=== PATIENT | female | born 1965 | race Caucasian/White ===

== ENCOUNTER 2021-11-16 14:42 | Observation (INO) | payer MEDICARE, SELFPAY ==
[2021-11-16] VITALS (13 sets, daily range): BP systolic 90–137; BP diastolic 71–102; PULSE 69–78; RESP 15–20; TEMP 37.1–37.4; O2SAT 95–100
--- NOTE | ~2021-11-16 | CT_ITS ---
EXAMINATION: CT brain wo con DATE: 11/17/2021 00:57 INDICATION: Decreased level of responsiveness TECHNIQUE: Computed tomography (CT) of the head was performed without intravenous contrast. Sagittal and coronal reconstructions were performed. The mA was adjusted according to patient size. Iterative reconstruction technique was employed. The dose-length product was 605.33 mGy-cm. COMPARISON: None FINDINGS: No acute intracranial hemorrhage, acute infarction or abnormal extra axial fluid collection. Ventricl es are normal and symmetric. No mass/mass effect. The orbits, paranasal sinuses and mastoid air cells are normal. IMPRESSION: 1. No acute intracranial process. Reviewed, dictated and finalized at location A. NISTRATIVE DIETITIAN
--- NOTE | ~2021-11-16 | XR_ITS ---
EXAMINATION: XR chest 1V portable DATE: 11/16/2021 20:57 INDICATION: Altered mental status. TECHNIQUE: A single frontal view of the chest was obtained. COMPARISON: None. FINDINGS: The lung volumes are small. There is mild atelectasis at left lung base. No pleural effusio n or pneumothorax. The heart size is normal. IMPRESSION: 1. Small lung volumes with mild atelectasis at left lung base. Reviewed, dictated and finalized at location E. ER PNEUMATIC
--- NOTE | 2021-11-16 14:55 | ECG_ITS ---
Measurements Intervals [place] Rate: 68 P: 26 [place]: 190 QRS: -3 QRSD: 93 T: 1 QT: 385 QTc: 409 Interpretive Statements SINUS RHYTHM VOLTAGE CRITERIA FOR LVH BORDERLINE T WAVE ABNORMALITY- INFERIOR LEADS BASELINE ARTIFACT- V4 BORDERLINE ECG Electronically Signed On 11-17-2021 7:39:23 [employer] MIXER OPERATOR by Cesar Villanueva D.O.
[2021-11-16 15:20] LABS: Basophils Absolute Auto 0.1 K/mm3 (0.0-0.1); Basophils Percent Auto 0.7 % (0.2-1.2); Eosinophils Absolute Auto 0.1 K/mm3 (0-0.3); Eosinophils Percent Auto 1.2 % (0-4.4); Hematocrit 38.5 % (37.0-47.0); Hemoglobin 12.6 g/dL (12.0-15.0); Immature Granulocyte Absolute 0.03 K/mm3 (0.00-0.031); Immature Granulocyte Percent A 0.4 % (0-0.5); Lymphocytes Absolute Auto 1.67 K/mm3 (0.9-3.2); Lymphocytes Percent Auto 19.6 % (18.3-44.2); Mean Corpuscular HGB Conc 32.7 g/dl (32-36); Mean Corpuscular Hemoglobin 28.3 pg (26-34); Mean Corpuscular Volume 86.3 fl (80-100); Mean Platelet Volume 9.1 fl (7.4-10.4); Monocytes Absolute Auto 0.4 K/mm3 (0.1-0.6); Monocytes Percent Auto 5.2 % (2.6-8.5); Neutrophils Absolute Auto 6.2 K/mm3 (1.3-6.7); Neutrophils Percent Auto 72.9 % (45.5-73.1); Platelet Count Result 311 k/mm3 (150-375); Red Blood Count 4.46 M/mm3 (4.2-5.4); White Blood Count 8.5 K/mm3 (4.5-10.0)
[2021-11-16 15:21] LABS: Add Urine Microscopic? NO; Appearance Urine Clear (Clear); Bilirubin Urine Negative (Negative); Blood Urine Negative (Negative); Color Urine Straw (Yellow); Glucose Urine UA Negative (Negative); Ketones Urine Negative (Negative); Leukocyte Esterase Ur Negative LEU/UL (Negative); Nitrate Urine Negative (Negative); Protein Urine Negative (Negative); Urobilinogen Urine Negative mg/dL (<2.0)
[2021-11-16 15:27] LABS: Alveolar/Arterial O2 Gradient 70.1 mmHg; Base Excess ABG 0.8 mEq/l (+/-2.0); Fractional Inspired Oxygen 36 %; HCO3 ABG 26.3 mEq/l (22.0-26.0); Modified Allen's Test Pass; Oxygen Content ABG 18.4 %vol (16.0-22.0); Oxygen Saturation ABG 98.6 % (95.0-100.0); Oxyhemoglobin 97.8 % THb (90.0-100.0); PCO2 ABG 45.6 mmHg (35.0-45.0); PO2 ABG 133.7 mmHg (80.0-100.0); PO2 FiO2 Ratio Arterial Blood 3.71 %; Site Drawn RIGHT RADIAL; Total Hemoglobin 13.2 g/dL (12.0-18.0); pH ABG 7.379 (7.350-7.450)
--- NOTE | 2021-11-16 15:27 | PC.NURSE ---
This nurse spoke to [place] [facility] and notified MD Liang that a CPK for pt should be ordered as well as seizure precautions. Case number is [id number].
[2021-11-16 15:28] LABS: Device NASAL CANNULA
[2021-11-16 15:33] LABS: Specific Grav Ur 1.003 (1.001-1.035)
[2021-11-16] MEDS: LACTATED RINGERS 1,000 ML 999 ML IV CONT (16:04)
[2021-11-16 16:15] LABS: Alanine Aminotransferase 29 U/L (4-35); Albumin Level 3.9 g/dL (3.5-5.1); Alkaline Phosphatase 100 U/L (38-126); Anion Gap 4 mmol/L (8-16); Aspartate Amino Transferase 28 U/L (14-36); Bilirubin,Total 0.4 mg/dL (0.2-1.3); Blood Urea Nitrogen 13 mg/dL (7-17); Carbon Dioxide 24 mmol/L (22-30); Chloride 106 mmol/L (98-107); Estimated CRCL calculation 86 ml/min; Estimated Glomerular Filt Rate > 60; Glucose 140 mg/dL (65-110); Potassium 3.8 mmol/L (3.4-5.0); Sodium 134 mmol/L (137-145)
[2021-11-16 17:06] LABS: Creatine Kinase 149 U/L (30-135)
[2021-11-16 17:27] LABS: Acetaminophen < 10 ug/mL (10-30); Ethanol < 10 mg/dL (<10); Salicylate < 1.0 mg/dL (2-20)
--- NOTE | 2021-11-16 17:30 | PM.IMHP ---
H&P: HPI History of Present Illness Date/Time: 11/16/21 17:30 Chief Complaint: Presumed overdose. Narrative: This is a 55-year-old who presented to the emergency department via EMS for evaluation of a presumed overdose. She is currently only arousable to noxious stimuli and cannot provide any history and as such all of the following is obtained via a review of her electronic medical records as well as discussions with nursing staff. I have not been able to get in touch with any family members though I was told that her daughter is on her way here from [place]. A review of her external medication history suggest that she has a history of insomnia, dyslipidemia, and hypothyroidism. Is my understanding that family members last spoke with the patient at around 10:30 and when they tried to get a hold of her 4 hours thereafter and she did not answer. They must have been concerned about her well-being as they called for a welfare check. The patient was reportedly not at home and her cellphone was pinged to a local truck stop. Police did find her at that truck stop sitting in her car, taking pills 1 at a time. She admitted to them that she was taking the medication in a suicide attempt. EMS was summoned and on their arrival she was alert and oriented x4 though she became lethargic in route and minimally responsive. It is unclear which medications the patient had been taking though according to counts performed by staff in the emergency department, it looks as though she may have taken tizanidine and zolpidem though that has not been confirmed. Urine drug screen was negative and salicylate and acetaminophen levels were undetectable. Ethyl alcohol level was also undetectable. Currently she is sleeping heavily though response to noxious stimuli. She is protecting her airway and ABG was really unremarkable. Review of Systems Review of Systems: Unable to obtain given current clinical condition as detailed above. [facility] Past Medical History Medical History (Updated 11/16/21 @ 20:42 by Kaycee Simmons PA-C) Hypothyroidism Insomnia Surgical History Surgical History (Updated 11/16/21 @ 20:37 by Kaycee Simmons PA-C) Surgical history unknown Family History Family History (Updated 11/16/21 @ 20:37 by Kaycee Simmons PA-C) Other Family history unknown Social History Social History (Updated 11/16/21 @ 20:38 by Kaycee Simmons PA-C) Social History: Unable to obtain at this time given clinical condition as above. Meds Home Medications and Allergies Home Medications Medication Instructions Recorded Confirmed Type amitriptyline 100 mg PO HS 11/16/21 11/16/21 History celecoxib 200 mg PO DAILY 11/16/21 11/16/21 History ezetimibe 10 mg PO DAILY 11/16/21 11/16/21 History gabapentin 300 mg PO BID 11/16/21 11/16/21 History levothyroxine 125 mcg PO DAILY 11/16/21 11/16/21 History tizanidine 4 mg PO DAILY 11/16/21 11/16/21 History valacyclovir 1,000 mg PO TID 11/16/21 11/16/21 History zolpidem 5 mg PO HS PRN 11/16/21 11/16/21 History Allergies Allergy/AdvReac Type Severity Reaction Status Date / Time morphine Allergy Unknown Verified 11/16/21 18:55 Vital Signs Vital Signs - 24 hr 11/16/21 14:45 Temperature 99.3 F Pulse Rate 74 Respiratory Rate 17 Blood Pressure 137/102 H Pulse Oximetry 99 Exam Narrative: General: Ill-appearing female in the semi-Van position in bed. Heavily asleep. Weight: 95 kg. BMI: 30.1. HEENT: Normocephalic, atraumatic. Pupils are approximately 3 to 4 mm and are sluggishly reactive. Sclerae anicteric. Conjunctiva mildly injected. Tacky mucous membranes. Oropharynx not visualized. Neck: Supple. No obvious JVD, thyromegaly, lymphadenopathy, or bruits. Respiratory: Asleep and snoring. Respirations are nonlabored. She is being monitored closely on capnography. Her pulse ox is currently 100% on room air. Diminished lung sounds due to poor effort, otherwise clear to auscultation. [facility]
[2021-11-16 17:32] LABS: Amphetamine Screen Urine Negative (Negative); Barbiturate Screen Urine Negative (Negative); Benzodiazepines Screen Urine Negative (Negative); Cannabinoid Screen Urine Negative (Negative); Cocaine Screen Urine Negative (Negative); Methadone Screen Urine Negative (Negative); Opiate Screen Urine Negative (Negative); Phencyclidine Screen Urine Negative (Negative)
[2021-11-16] MEDS: LACTATED RINGERS 1,000 ML 125 ML IV CONT (17:40)
--- NOTE | 2021-11-16 17:40 | ED.OVERDOSE ---
HPI - Overdose General Chief Complaint: Overdose Stated Complaint: OVERDOSE,SI Time Seen by Provider: 11/16/21 15:01 Source: EMS Mode of arrival: EMS Limitations: altered mental status History of Present Illness HPI Narrative: 55 f BIB EMS for SA/SI/Overdose Patient apparently was in touch with her family at around 1030 this morning Unclear what the context or content of that interaction was However at some point later in the morning they got worried about her and started possibly trying to track her by pinging her iPhone This led to EMS being summoned to the local [employer] truck stop around 2 PM where the patient had reportedly been sitting and eating pills one by one and also was reportedly awake and sitting in a police car when they got there By the time she arrived here she is deeply sedated and lethargic and only responds correctly to pain such as a sternal rub In counting through all of her pills it appears likely that she took 7 or 8 4 mg tizanidine which are missing from a prescription bottle filled yesterday She also has a bottle of Ambien 5 mg filled approximately a month ago and would have taken about 30 or 35 of those if she had previously been taking them correctly The other pills seem to be present still in the bottles in their correct amounts Review of Systems Review of Systems: ROS unobtainable: Yes unobtainable due to mental status Exam Const: General: cooperative and healthy appearing Other: Lethargic/obtunded HENMT: Head: normal to inspection, normocephalic, atraumatic, no contusions and no hematomas Ears: external ears normal General nose exam: no epistaxis Eyes: Conjunctivae: conjunctivae normal Pupils: Equal, round and reactive pupils present (4 mm) EOM: EOMs intact bilaterally Neck: Neck: normal visual inspection, no meningeal signs, supple and no JVD Resp: Effort & Inspection: normal respiratory effort and not labored Auscultation: clear to auscultation bilaterally and other (BS =) Other: She is protecting her airway with the head at a 45 degree angle Cardio: Rate: regular rate Rhythm: regular rhythm Heart sounds: no murmurs GI: GI Palp: Yes Soft to palpation and No Tenderness to palpation present (GI) Skin: General skin exam: normal color and no rashes or lesions noted Neuro: General: moves all extremities Other: Appropriate to noxious stimuli but does not follow any directions and does not interact verbally Extrem: General: normal to inspection and no pedal edema Psych: Affect: normal affect Course Course Emergency Course: Remains hemodynamically stable and with good O2 saturations on minimal supplemental oxygen No significant conduction abnormalities on the EKG Discussed with Dr. Cotton in the ICU and he is okay with monitoring without intubating her Discussed with hospitalist for admission Vital Signs Vital signs: Vital Signs Temperature 37.4 C 11/16/21 14:45 Pulse Rate 74 11/16/21 14:45 Respiratory Rate 17 11/16/21 14:45 Blood Pressure 137/102 H 11/16/21 14:45 Pulse Oximetry 99 11/16/21 14:45 Temperature 37.4 C 11/16/21 14:45 Pulse Rate 73 11/16/21 16:05 Respiratory Rate 20 11/16/21 16:05 Blood Pressure 90/73 L 11/16/21 16:05 Pulse Oximetry 100 11/16/21 16:05 MDM - Overdose Differential Diagnosis Differential diagnosis: Likely suicide attempt by multiple drug overdose Medical Records Attestation: I reviewed the patient's medical records. Lab Data Attestation: I reviewed the patient's lab results. Result diagrams: 11/16/21 15:09 11/16/21 15:09 Labs: Lab Results 11/16/21 11/16/21 11/16/21 Range/Units 15:07 15:09 15:09 WBC 8.5 (4.5-10.0) K/mm3 RBC 4.46 (4.2-5.4) M/mm3 Hgb 12.6 (12.0-15.0) g/dL Hct 38.5 (37.0-47.0) % MCV 86.3 (80-100) fl MCH 28.3 (26-34) pg MCHC 32.7 (32-36) g/dl RDW 14.0 (11.5-14.5) % Plt Count 311 (150-375) k/mm3 MPV 9.1 (7
--- NOTE | 2021-11-16 18:40 | PC.NURSE ---
This nurse gave an update to pt daughter. Pt daughter instructed this nurse to call with an update once she is awake or when a bed is available.
--- NOTE | 2021-11-16 20:40 | PC.NURSE ---
This patient, Sofia Castaneda, was admitted to Intensive Care Unit-5. Patient/family oriented to hospital policies and general routines including ID bracelet, bed and alarms, visiting hours, pain management, procedures, bathroom and other care routines, personal items, smoking policy, room service/diet, and visiting hours. Information on how to activate the Rapid Response Team has been discussed. Patient/Family are encouraged to report perceived risks to care and to ask questions if they do not understand what they are told or what they should do.
[2021-11-16 23:07] LABS: SARS-CoV-2 RNA PCR Negative
[2021-11-16 23:22] LABS: Creatine Kinase 156 U/L (30-135)
[2021-11-16 23:43] LABS: Free T4 Free Thyroxine 0.87 ng/mL (0.78-2.19)
[2021-11-17] VITALS (9 sets, daily range): BP systolic 104–147; BP diastolic 66–95; PULSE 61–98; RESP 14–27; TEMP 36.1–36.9; O2SAT 95–99
[2021-11-17 00:37] LABS: Creatine Kinase 114 U/L (30-135)
[2021-11-17] MEDS: LACTATED RINGERS 1,000 ML 125 ML IV CONT (01:05)
--- NOTE | 2021-11-17 02:43 | PC.NURSE ---
Addendum entered by Shawn Pimentel RN 11/17/21 06:37: Patients Rocío smith: [phone] Original Note: 23:00 Attempted to return phone call to Rocío smith. Call went straight to voicemail. This RN left a message for her to call anytime.
[2021-11-17 04:40] LABS: Hemoglobin 13.2 g/dL (12.0-15.0); Mean Corpuscular HGB Conc 30.7 g/dl (32-36); Mean Corpuscular Hemoglobin 28.6 pg (26-34); Mean Corpuscular Volume 93.3 fl (80-100); Mean Platelet Volume 9.1 fl (7.4-10.4); Platelet Count Result 228 k/mm3 (150-375); Red Blood Count 4.61 M/mm3 (4.2-5.4); Red Cell Distribution Width 14.1 % (11.5-14.5); White Blood Count 8.2 K/mm3 (4.5-10.0)
[2021-11-17 05:01] LABS: Alanine Aminotransferase 26 U/L (4-35); Albumin Level 3.5 g/dL (3.5-5.1); Alkaline Phosphatase 88 U/L (38-126); Anion Gap 4 mmol/L (8-16); Aspartate Amino Transferase 28 U/L (14-36); Bilirubin,Total 0.7 mg/dL (0.2-1.3); Blood Urea Nitrogen 12 mg/dL (7-17); Calcium 8.6 mg/dL (8.4-10.2); Carbon Dioxide 25 mmol/L (22-30); Chloride 109 mmol/L (98-107); Estimated CRCL calculation 112 ml/min; Estimated Glomerular Filt Rate > 60; Glucose 93 mg/dL (65-110); Potassium 3.7 mmol/L (3.4-5.0); Sodium 138 mmol/L (137-145)
[2021-11-17] MEDS: LEVOTHYROXINE SODIUM INJ 100 MCG/5 ML VIAL 62.5 MCG IV PUSH (05:56)
[2021-11-17] MEDS: LACTATED RINGERS 1,000 ML 999 ML IV CONT (08:35)
--- NOTE | 2021-11-17 10:29 | PC.NURSE ---
1027- Spoke with Keven from poison control stated he is closing out Sofia's case there is nothing further to do.
--- NOTE | 2021-11-17 11:29 | WPDCNINT ---
Assessment and Plan Assessment and plan (1) Intentional overdose: Code(s): T50.902A - Poisoning by unspecified drugs, medicaments and biological substances, intentional self-harm, initial encounter Status: Acute Assessment and Plan: Patient started to have on tizanidine and zolpidem -was initially somnolent, CT brain was negativ for any acute intracranial abnormality -currently patient is awake, alert, oriented x3, nonfocal -patient is asking to eat breakfast -will give additional IV fluid bolus (2) Suicidal behavior: Code(s): R45.89 - Other symptoms and signs involving emotional state Status: Acute Assessment and Plan: initially in the ER, pt admitted to suicide attenpt. This morning she denies suicidal or homicidal. Pt is medically stable for care coordination and crisis management evaluation (3) Hypothyroidism: Code(s): E03.9 - Hypothyroidism, unspecified Status: Chronic Assessment and Plan: continue levothyroxine Additional Plan Code status:Full code Critical care time spent: 42 minutes This dictation may have been done utilizing a voice recognition system. Attempts have been made to correct errors. However, there may be uncorrected grammatical, spelling, and recognition errors present. Due to a high probability of clinically significant, life threatening deterioration, the patient required my highest level of preparedness to intervene emergently and I personally spent this critical care time directly and personally managing the patient. This critical care time included obtaining a history; examining the patient; pulse oximetry; ordering and review of studies; arranging urgent treatment with development of a management plan; evaluation of patient's response to treatment; frequent reassessment; and discussions with other providers. It was exclusive of separately billable procedures and treating other patients and teaching time. Please see Assessment and Plan section and the rest of the note for further information on patient assessment and treatment Assembler For Pull[employer] Over Machine Consult Note Consult date: 11/17/21 Time Seen: 07:04 Reason for consult: Intentional overdose, suicidal behavior, altered mental status HPI: Sofia Castaneda is a 55 year old female with past medical history of insomnia and hypothyroidism presented the ED on 11/16/2021 with intentional overdose and suicidal behavior. Patient apparently may have taken tizanidine and zolpidem but is unsure. Patient initially was lethargic in the ER and in the ICU. Patient received 1 L IV fluid bolus in the ER and was started on maintenance IV fluids. On 11/17/2021 patient seen and examined the ICU, is awake, alert, oriented, nonfocal. Denies any homicidal or suicidal behavior. She states it was a mistake and she has a lot of stressors going on. Patient is hungry, follows commands in all extremities eyes able to hold a conversation. Patient is hemodynamically stable, urine output has been adequate, she is afebrile. Denies any chest pain, shortness of breath, abdominal pain, nausea, vomiting, diarrhea. Patient states she is hungry Review of Systems Review of Systems: All systems reviewed & are unremarkable except as noted in HPI and below PMFSH Past Medical History Medical History (Updated 11/17/21 @ 11:35 by Tamra Garcia MD) Hypothyroidism Insomnia Surgical History Surgical History (Updated 11/16/21 @ 20:37 by Kaycee Simmons PA-C) Surgical history unknown Family History Family History (Updated 11/16/21 @ 20:37 by Kaycee Simmons PA-C) Other Family history unknown Social History Social History (Updated 11/16/21 @ 20:38 by Kaycee Simmons PA-C) Social History: Unable to obtain at this time given clinical condition as above. Smoking status: Never smoker Alcohol intake: never Substance use: never Substance use type: does not use Spiritual care concerns: No Meds
--- NOTE | 2021-11-17 17:52 | PM.DS ---
DS: Admitting Diagnosis Discharge Date 11/17/21 Admitting Diagnosis (1) Altered mental status: Code(s): R41.82 - Altered mental status, unspecified (2) Suicide gesture: Code(s): X83.8XXA - Intentional self-harm by other specified means, initial encounter (3) Suicide attempt by multiple drug overdose: Code(s): (4) Hypothyroidism: Code(s): E03.9 - Hypothyroidism, unspecified Status: Chronic DS: Discharge Diagnosis Discharge Diagnosis (1) Intentional overdose: Code(s): T50.902A - Poisoning by unspecified drugs, medicaments and biological substances, intentional self-harm, initial encounter Status: Acute (2) Suicidal behavior: Code(s): R45.89 - Other symptoms and signs involving emotional state Status: Acute (3) Hypothyroidism: Code(s): E03.9 - Hypothyroidism, unspecified Status: Chronic (4) Suicide attempt by multiple drug overdose: Code(s): T50.912A - Poisoning by multiple unspecified drugs, medicaments and biological substances, intentional self-harm, initial encounter Status: Acute (5) Suicide gesture: Code(s): X83.8XXA - Intentional self-harm by other specified means, initial encounter Status: Acute (6) Acute metabolic encephalopathy: Code(s): G93.41 - Metabolic encephalopathy Status: Acute DS: Summary Hospital Course Reason for hospitalization: suicide attempt by OD Hospital Course: 55 year old female with past medical history of insomnia and hypothyroidism presented the ED on 11/16/2021 with intentional overdose and suicidal behavior. Patient apparently may have taken tizanidine and zolpidem but is unsure. Patient initially was lethargic in the ER and in the ICU. Patient received 1 L IV fluid bolus in the ER and was started on maintenance IV fluids. On 11/17/2021 patient seen and examined the ICU, is awake, alert, oriented, nonfocal. Denies any homicidal or suicidal behavior. She states it was a mistake and she has a lot of stressors going on. Patient is hungry, follows commands in all extremities eyes able to hold a conversation. Patient is hemodynamically stable, urine output has been adequate, she is afebrile. Denies any chest pain, shortness of breath, abdominal pain, nausea, vomiting, diarrhea. Pt is cleared by Fireboat Operator for evaluation by Crisis. She is subsequently cleared by crisis for dc home in stable condition with suicide contract. Status at Discharge Overall status at discharge: patient is back to baseline Time Spent with Patient Time attestation: Total time spent providing and/or coordinating discharge services: Time spent: Greater than 30 minutes Exam Narrative: General: Patient lying in bed comfortably , in no acute distress HEENT: NCAT EOMI, sclera is clear Neck: Neck is supple, no cervical lymphadenopathy Respiratory: Clear to auscultation bilaterally Cardiac: Sinus rhythm, regular rate, S1-S2 normal Abdomen: Soft, nontender, nondistended, normoactive bowel sounds Extremities: No edema, palpable pedal pulses Neuro: Patient is awake, alert, oriented x3, nonfocal, able to answer questions appropriately Skin: Warm and dry, no skin lesions noted Psych: Mood and affect congruent, thoughts linear, elevated mood when told she will be discharged DS: Data Data Completed and Pending Labs on day of discharge: Labs from last 24 hours 11/17/21 11/17/21 11/17/21 04:34 04:34 00:08 WBC 8.2 RBC 4.61 Hgb 13.2 Hct 43.0 MCV 93.3 D MCH 28.6 MCHC 30.7 L RDW 14.1 Plt Count 228 MPV 9.1 Sodium 138 Potassium 3.7 Chloride 109 H Carbon Dioxide 25 Anion Gap 4 L BUN 12 Creatinine 0.60 L Estim Creat Clear Calc 112 Estimated GFR > 60 Glucose 93 Calcium 8.6 Total Bilirubin 0.7 AST 28 ALT 26 Alkaline Phosphatase 88 Total Creatine Kinase 114 Total Protein 6.0 L Albumin 3.5 Free T4 SARS-CoV-2
== END 2021-11-17 19:11 ==
LOC: ANHED 17:56 → ANHICU 21:56
PROVIDERS: Emergency Medicine; Physician Assistant; Admitting Provider Internal Medicine; Emergency Provider Emergency Medicine; Visit Provider Hospitalist
DX: T50.912A Poisoning by multiple unspecified drugs, medicaments and biological substances, intentional self-harm, initial encounter (principal); G93.41 Metabolic encephalopathy; G47.00 Insomnia, unspecified; E03.9 Hypothyroidism, unspecified; X83.8XXA Intentional self-harm by other specified means, initial encounter
CPT/HCPCS: 36415; 36600; 51701; 70450; 71045; 80053; 80307; 81003; 81025; 82550; 82805; 84439; 84443; 85025; 85027; 93005; 96361; 96374; 99285; C9803; G0378; J7120; U0003; U0005

== ENCOUNTER 2025-04-11 01:44 | Day surgery (SDC) | payer MEDICARE, SELFPAY ==
--- NOTE | 2025-04-06 14:24 | PM.IMHP ---
H&P: HPI History of Present Illness Date/Time: 04/06/25 14:24 Chief Complaint: mixed incontinence Narrative: desires intervention for both stress and urge incontinence Review of Systems Review of Systems: All systems reviewed & are unremarkable except as noted in HPI and below PMFSH Past Medical History Medical History Hypothyroidism Insomnia Surgical History Surgical History Surgical history unknown Family History Family History Other Family history unknown Social History Social History Social History: Unable to obtain at this time given clinical condition as above. Smoking status: Never smoker Alcohol intake: never Substance use: never Substance use type: does not use Spiritual care concerns: No Meds Home Medications and Allergies Home Medications ?Medication ?Instructions ?Recorded ?Confirmed ?Type amitriptyline 50 mg tablet 100 mg PO HS 11/16/21 11/16/21 History celecoxib 200 mg capsule 200 mg PO DAILY 11/16/21 11/16/21 History ezetimibe 10 mg tablet 10 mg PO DAILY 11/16/21 11/16/21 History gabapentin 300 mg capsule 300 mg PO BID 11/16/21 11/16/21 History tizanidine 4 mg tablet 4 mg PO DAILY 11/16/21 11/16/21 History valacyclovir 1 gram tablet 1,000 mg PO TID 11/16/21 11/16/21 History zolpidem 5 mg tablet 5 mg PO HS PRN Sleep 11/16/21 11/16/21 History levothyroxine 137 mcg capsule 137 mcg PO DAILY #60 caps 11/17/21 Rx Allergies Allergy/AdvReac Type Severity Reaction Status Date / Time morphine Allergy Unknown Verified 11/16/21 18:55 Exam Narrative: no acute distress alert and oriented x3 normal breathing Assessment and Plan Assessment and plan (1) Urge incontinence: Code(s): N39.41 - Urge incontinence Status: Acute (2) Intrinsic sphincter deficiency (ISD): Code(s): N36.42 - Intrinsic sphincter deficiency (ISD) Status: Acute Plan combination procedure of cystoscopy with Botox injection 100 units and cystoscopy with bulking agent.
[2025-04-09 10:26] VITALS: BMI 35.6
--- NOTE | 2025-04-09 10:34 | PC.NURSE ---
Report to the Outpatient Waiting Room, entrance under the green pavilion located off [facility], at time _0815_ on date _[id number]_. Planned Procedure Time: _1015_.? Time changes happen often and if your time is changed the preop area will call you the afternoon before. - You and your visitor will be asked to self-screen and do not enter if you have any COVID symptoms. Please call surgeon if you need to reschedule. - A mask is optional within the hospital at this time. Patients may have clear liquids (water, carbonated beverages, clear teas, apple juice) until 3 hours prior to surgery with a maximum of 20 ounces. - No food from midnight until time of surgery and no smoking, or chewing tobacco (or any form of nicotine). No chewing gum, candy or mints. Take only the following medications with a SIP of water on the morning of surgery: ___Gabatentin, Levothyroxine, Aripiprazole, Metoprolol and Duloxetine.____ DO NOT STOP ANY OF YOUR OTHER PRESCRIPTION MEDICATIONS PRIOR TO SURGERY EXCEPT THE FOLLOWING Hold all vitamins and supplements for 3 days per anesthesiologist. Medications to discontinue per physician Date to take last dose Please no make-up, nail german, hairspray, perfume, deodorant, or body powder the day of surgery.? No jewelry (including any body piercings) or valuables the day of surgery, leave them at home.? Please take a shower or bath the night before, or the morning of, surgery with an antibacterial soap.? Wear comfortable, loose fitting clothing.? - Jewelry must be removed prior to entering the operating room.? Rings and piercings that are not removed may be cut off. - The hospital will not accept responsibility for valuables.? - Please leave all valuables, including medications, at home the day of surgery. If you are going home after surgery, a licensed sweeper driver must drive you home.? - NO public transportation without another adult if you receive anesthesia. - We recommend that an adult stay with you for 24 hours following discharge. - We also recommend that you do not drive, make important decision, drink alcoholic beverages, or take any drugs that were not prescribed by your health care provider for at least 24 hours after your discharge time. Follow any additional instructions given to you from your surgeon. Telephone instructions given to ___Gimaria ay__and asked if any additional questions and then verbalized understanding. Patient advised to call surgeon office or pre surgery nurse liaison [phone] if any additional questions.
--- OUTSIDE RECORDS SUMMARY | 2025-04-11 01:46 | XMS_ITS | Clinical Summary ---
Author Organization [facility] Address [address] [place] [address] Care Team Providers Care Light Bulb Tester Name Role Phone Manav Tripp MD Unavailable Unavailable Topher Cruz MD Primary Care Provider [phone] Allergies Active Allergy Reactions Criticality Noted Date Comments Metformin Anxiety Low 12/20/2018 Depression Morphine Rash Low 12/26/2018 swelling Bupropion Other (see comment) 12/20/2018 Agitation; Depression Medications amitriptyline 50 MG tablet Take 1 tablet (50 mg total) by mouth nightly at bedtime. Active celecoxib 200 MG capsule Take 1 capsule (200 mg total) by mouth 2 (two) times daily. Active gabapentin 300 MG capsule Take 1 capsule (300 mg total) by mouth 3 (three) times daily. Active levothyroxine 125 MCG tablet Take 1 tablet (125 mcg total) by mouth every morning. Active pantoprazole EC 40 MG tablet Take 1 tablet (40 mg total) by mouth 2 (two) times a day. Active escitalopram 20 MG tablet Take 1 tablet (20 mg total) by mouth daily. Active ezetimibe 10 MG tablet Take 1 tablet (10 mg total) by mouth nightly at bedtime. Active montelukast 10 MG tablet Take 1 tablet (10 mg total) by mouth daily. Active zolpidem 5 MG tablet Take 1 tablet (5 mg total) by mouth nightly as needed for Sleep. Active albuterol sulfate HFA 108 (90 Base) MCG/ACT inhaler 1 Active tiZANidine 4 MG tablet Take 1 tablet (4 mg total) by mouth nightly at bedtime. 30 tablet 2 Active metoprolol succinate ER (TOPROL-XL) 25 MG 24 hr tablet Take 1 tablet (25 mg total) by mouth daily. 2 Active furosemide (LASIX) 20 MG tablet Take 1 tablet (20 mg total) by mouth daily. 2 Active DULoxetine (CYMBALTA) 20 MG capsule Take 1 capsule (20 mg total) by mouth daily. 2 Active amLODIPine (NORVASC) 10 MG tablet Take 1 tablet (10 mg total) by mouth daily. 2 Active meclizine (TRAVEL SICKNESS) 25 MG chewable tablet 25-50mg three times a day as needed for dizziness 20 tablet 2 Active Active Problems Problem Noted Date Diagnosed Date Chronic right SI joint pain 10/15/2024 History of total shoulder replacement, left 09/10 Lumbar radiculopathy 01/14/2022 Chest pain 08/12/2020 Encounters Date Type Department Care Team Description 02/01/2025 7:11 AM CDT - 02/01/2025 11:59 PM CDT Hospital Encounter [facility] [address] [place] [address] Cesar Martinez MD Discharge Disposition: Home or Self Care (Routine Discharge) 02/01/2025 7:11 AM CDT - 02/01/2025 11:59 PM CDT Hospital Encounter [facility] CT [address] [place] [address] Melvin Yarbrough MD Discharge Disposition: Home or Self Care (Routine Discharge) 02/01/2025 7:11 AM CDT - 02/01/2025 11:59 PM CDT Hospital Encounter [facility] [address] [place] [address] Melvin Yarbrough MD Discharge Disposition: Home or Self Care (Routine Discharge) 02/01/2025 Travel 01/17/2025 Telephone [facility] Interventional Radiology [address] [place] [address] Veronika Guerrero, RN Schedule Procedure (Patient scheduled for Myelogram & CT's 02/01/25 ARR 0800/ HOLD 0830. They are aware that they can eat and drink up until 0500 the morning of the procedure then only water. She is aware she will need a speedboat driver for after the procedure. They were informed that the visit can take around 4 hours to complete including a 2 hour recovery period. They have been instructed to hold blood thinners and to avoid OTC ASA. Reviewed where and when to check in as well. They VU and thanked nurse. /) from Last 3 Months Family History Medical History Relation Comments Cancer Brother Depression Brother Heart Disease Brother Hypertension Brother Relation Status Comments Brother Alive Father Mother Sister Alive Social History Tobacco Use Types Packs/Day Years Used Date Smoking Tobacco: Never Smokeless Tobacco: Never Tobacco Cessation:Counseling Given: Not Answered Alcohol Use Standard Drinks/Week Comments Yes 1.7 (1 standard drink = 0.6 oz p ure alcohol) rarely Comments No Sex and Gender Information Value Date Recorded Sex Assigned at Female 10/30/2024 2:20 PM LICENSED MASSAGE PRACTITIONER Legal Sex Female 6:08 PM CDT Gender Identity Not on file Sexual Orientation Not on file Last Filed Vital Signs Vital Sign Reading Time Taken Comments Blood Pressure 113/75 02/01/2025 12:13 PM CDT Pulse 67 02/01/2025 12:13 PM CDT Temperature 35.8 C (96.4 F) 08/16/2023 12:27 AM LICENSED MASSAGE PRACTITIONER Respiratory Rate 16 02/01/2025 12:13 PM CDT Oxygen Saturation 94% 02/01/2025 12:13 PM CDT Inhaled Oxygen Concentration - - Weight 99.8 kg (220 lb) 02/01/2025 8:36 AM CDT Height 167.6 cm (5' 6) 02/01/2025 8:36 AM CDT Body Mass Index 35.51 02/01/2025 8:36 AM CDT Plan of Treatment Health Maintenance Due Date Last Done Comments Colorectal Cancer Screening Colonoscopy (10 Years) 1965 Annual Physical 1968 Hepatitis C 1983 DTaP, Tdap and Td Vaccines ( 1 - Tdap) 1984 Mammogram Screening 2005 Pneumococcal Vaccine: 50+ Years (1 of 1 - PCV) 2015 Zoster Vaccines (1 of 2) 2015 COVID-19 Vaccine (2023- 5 season) 2024 08/09/2021, 07/22/2021 PHQ-2 (Physician [place]) 10/10/2024 Meningococcal B Vaccine Aged Out No l onger eligible based on patient's age to complete this topic Meningococcal Vaccine Aged Out No brant ermelinda eligible based on patient's age to complete this topic RSV Immunizations Under 20 Months Aged Out No longer eligible b ased on patient's age to complete this topic Medical Devices Implanted Type Area Registered Nurse Step Down Device Identifier Shelf Expiration Date Model / Serial / Lot Retained Stimulator Lead Lead Implant Sacrum Description:PATIENT HAS A RE TAINED , BROKEN STIMULATOR LEAD . SCANS CAN BE DONE IN TRANSMIT/RECEIVE COILS ONLY! DO NOT USE INHERENT BODY COIL TO TRANSMIT . CALL FOOD DEHYDRATOR OPERATOR TO VERIFY PRIOR TO SCAN Procedures Procedure Name Priority Date/Time Associated Diagnosis Comments XR MYELOGRAM LUMBAR Routine 02/01/2025 1 0:36 AM CDT Myelopathy ([facility]) XR MYELOGRAM THORACIC Routine 02/01/2025 10:36 AM CDT Myelopathy ([facility]) XR MYELOGRAM CERVICAL Routine 02/01/2025 10:36 AM CDT Myelopathy ([facility]) CT CERV SPINE POST MYELO Routine 02/01/2025 10:25 AM CDT Myelopathy ([facility]) CT LUMB SPINE POST MYELO Routine 02/01/2025 10:25 AM CDT Myelopathy ([facility]) CT THOR SPINE POST MYELO Routine 02/01/2025 10:25 AM CDT Myelopathy ([facility]) CBC W/DIFF AUTOMATED Routine 02/01/2025 7:36 AM CDT Myelopathy ([facility]) PROTHROMBIN TIME, VENOUS Routine 02/01/2025 7:36 AM CDT Myelopathy ([facility]) COLONOSCOPY Routine LICENSED MASSAGE PRACTITIONER from Last 3 Months or Most Recently Relevant to Health Maintenance Results * XR MYELOGRAM THORACIC (02/01/2025 10:36 AM CDT) Anatomical Region Laterality Modality Spine Computed Tomogra phy, Radiographic Imaging, Fluoroscopy 02/01/2025 12:2 1 PM CDT Impressions 02/01/2025 4:43 PM CDT IMPRESSION: 1. Injection for cervical, thoracic, and lumbar myelogram. 2. Sufficient portion of contrast noted in the intrathecal space for diagnostic quality images; however, a portion of contrast noted to be in the epidural and intradural space, possibly secondary to subtle needle migration during procedure. 3. Please see separately reported CT myelography for more detailed description of associated findings. The attending radiologist, Dr. Sarthak Ga MD, was available during all critical portions of the procedure, has reviewed the image(s) and agrees with the content of this report. Ordered By: MELVIN YARBROUGH Interpreted By: Luis Alfredo Martinez MD, 02/01/2025 12:21 PM Narrative 02/01/2025 4:43 PM CDT [address] [address] EXAMINATION: XR MYELOGRAM LUMBAR, XR MYELOGRAM THORACIC, XR MYELOGRAM CERVICAL EXAM TIME: 02/01/2025 10:16 AM HISTORY: Back pain. Radiculopathy. COMPARISON: CT abdomen pelvis 01/01/2021. CT head 04/30/2022. TECHNIQUE/FINDINGS: The procedure, as well as the risks and benefits of the procedure, were explained to the patient. Informed consent was obtained. A verification timeout was performed. Under fluoroscopic guidance, the L2-3 interlaminar space was localized, and the overlying skin was prepped in the usual sterile fashion. Once local analgesia had been achieved by infiltration of 1% lidocaine solution, a 20-gauge, 9 cm spinal needle was advanced without difficulty into the thecal sac with prompt return of clear colorless cerebrospinal fluid. A total of 12 cc of Isovue-M 300 was then instilled via a slow hand-injection into the thecal sac. The stylet was reinserted and the spinal needle was removed. The patient was tilted head down to encouraged contrast migration towards the cervical spine. Spot fluoroscopic images were obtained. During maneuvering, it was noted that a portion of the contrast injection was likely epidural and possibly intradural, possibly due to subtle needle migration during injection. Total fluoroscopic time utilized was 4.6 minutes, 6 image(s), and reference air kerma 60.6 mGy for this procedure. Procedure Note Sarthak Ga MD - 02/01/[address] [address] EXAMINATION: XR MYELOGRAM LUMBAR, XR MYELOGRAM THORACIC, XR MYELOGRAMCERVICAL EXAM TIME: 02/01/2025 10:16 AM HISTORY: Back pain. Radiculopathy. COMPARISON: CT abdomen pelvis 01/01/2021. CT head 04/30/2022. TECHNIQUE/FINDINGS: The procedure, as well as the risks and benefits ofthe procedure, were explained to the patient. Informed consent wasobtained. A verification timeout was performed. Under fluoroscopicguidance, the L2-3 interlaminar space was localized, and the overlyingskin was prepped in the usual sterile fashion. Once local analgesia hadbeen achieved by infiltration of 1% lidocaine solution, a 20-gauge, 9 cmspinal needle was advanced without difficulty into the thecal sac withprompt return of clear colorless cerebrospinal fluid. A total of 12 cc ofIsovue-M 300 was then instilled via a slow hand-injection into the thecalsac. The stylet was reinserted and the spinal needle was removed. Thepatient was tilted head down to encouraged contrast migration towards thecervical spine. Spot fluoroscopic images were obtained. Duringmaneuvering, it was noted that a portion of the contrast injection waslikely epidural and possibly intradural, possibly due to subtle needlemigration during injection. Total fluoroscopic time utilized was 4.6 minutes, 6 image(s), andreference air kerma 60.6 mGy for this procedure. IMPRESSION: 1. Injection for cervical, thoracic, and lumbar myelogram. 2. Sufficient portion of contrast noted in the intrathecal space fordiagnostic quality images; however, a portion of contrast noted to be inthe epidural and intradural space, possibly secondary to subtle needlemigration during procedure. 3. Please see separately reported CT myelography for more detaileddescription of associated findings. The attending radiologist, Dr. Sarthak Ga MD, was available during allcritical portions of the procedure, has reviewed the image(s) and agreeswith the content of this report. Ordered By: MELVIN YARBROUGH Interpreted By: Luis Alfredo Martinez MD, 02/01/2025 12:21 PM us Melvin Yarbrough MD FLUOROSCOPY Final Re sult * XR MYELOGRAM LUMBAR (02/01/2025 10:36 AM CDT) Anatomical Region Laterality Modality Spine Computed Tomogra phy, Radiographic Imaging, Fluoroscopy 02/01/2025 12:2 1 PM CDT Impressions 02/01/2025 4:43 PM CDT IMPRESSION: 1. Injection for cervical, thoracic, and lumbar myelogram. 2. Sufficient portion of contrast noted in the intrathecal space for diagnostic quality images; however, a portion of contrast noted to be in the epidural and intradural space, possibly secondary to subtle needle migration during procedure. 3. Please see separately reported CT myelography for more detailed description of associated findings. The attending radiologist, Dr. Sarthak Ga MD, was available during all critical portions of the procedure, has reviewed the image(s) and agrees with the content of this report. Ordered By: MELVIN YARBROUGH Interpreted By: Luis Alfredo Martinez MD, 02/01/2025 12:21 PM Narrative 02/01/2025 4:43 PM CDT [facility] [address] [place], [place] [address] EXAMINATION: XR MYELOGRAM LUMBAR, XR MYELOGRAM THORACIC, XR MYELOGRAM CERVICAL EXAM TIME: 02/01/2025 10:16 AM HISTORY: Back pain. Radiculopathy. COMPARISON: CT abdomen pelvis 01/01/2021. CT head 04/30/2022. TECHNIQUE/FINDINGS: The procedure, as well as the risks and benefits of the procedure, were explained to the patient. Informed consent was obtained. A verification timeout was performed. Under fluoroscopic guidance, the L2-3 interlaminar space was localized, and the overlying skin was prepped in the usual sterile fashion. Once local analgesia had been achieved by infiltration of 1% lidocaine solution, a 20-gauge, 9 cm spinal needle was advanced without difficulty into the thecal sac with prompt return of clear colorless cerebrospinal fluid. A total of 12 cc of Isovue-M 300 was then instilled via a slow hand-injection into the thecal sac. The stylet was reinserted and the spinal needle was removed. The patient was tilted head down to encouraged contrast migration towards the cervical spine. Spot fluoroscopic images were obtained. During maneuvering, it was noted that a portion of the contrast injection was likely epidural and possibly intradural, possibly due to subtle needle migration during injection. Total fluoroscopic time utilized was 4.6 minutes, 6 image(s), and reference air kerma 60.6 mGy for this procedure. Procedure Note Sarthak Ga MD - 02/01/[address] [address] EXAMINATION: XR MYELOGRAM LUMBAR, XR MYELOGRAM THORACIC, XR MYELOGRAMCERVICAL EXAM TIME: 02/01/2025 10:16 AM HISTORY: Back pain. Radiculopathy. COMPARISON: CT abdomen pelvis 01/01/2021. CT head 04/30/2022. TECHNIQUE/FINDINGS: The procedure, as well as the risks and benefits ofthe procedure, were explained to the patient. Informed consent wasobtained. A verification timeout was performed. Under fluoroscopicguidance, the L2-3 interlaminar space was localized, and the overlyingskin was prepped in the usual sterile fashion. Once local analgesia hadbeen achieved by infiltration of 1% lidocaine solution, a 20-gauge, 9 cmspinal needle was advanced without difficulty into the thecal sac withprompt return of clear colorless cerebrospinal fluid. A total of 12 cc ofIsovue-M 300 was then instilled via a slow hand-injection into the thecalsac. The stylet was reinserted and the spinal needle was removed. Thepatient was tilted head down to encouraged contrast migration towards thecervical spine. Spot fluoroscopic images were obtained. Duringmaneuvering, it was noted that a portion of the contrast injection waslikely epidural and possibly intradural, possibly due to subtle needlemigration during injection. Total fluoroscopic time utilized was 4.6 minutes, 6 image(s), andreference air kerma 60.6 mGy for this procedure. IMPRESSION: 1. Injection for cervical, thoracic, and lumbar myelogram. 2. Sufficient portion of contrast noted in the intrathecal space fordiagnostic quality images; however, a portion of contrast noted to be inthe epidural and intradural space, possibly secondary to subtle needlemigration during procedure. 3. Please see separately reported CT myelography for more detaileddescription of associated findings. The attending radiologist, Dr. Sarthak Ga MD, was available during allcritical portions of the procedure, has reviewed the image(s) and agreeswith the content of this report. Ordered By: MELVIN YARBROUGH Interpreted By: Luis Alfredo Martinez MD, 02/01/2025 12:21 PM us Melvin Yarbrough MD FLUOROSCOPY Final Re sult * XR MYELOGRAM CERVICAL (02/01/2025 10:36 AM CDT) Anatomical Region Laterality Modality Spine Computed Tomogra phy, Radiographic Imaging, Fluoroscopy 02/01/2025 12:2 1 PM CDT Impressions 02/01/2025 4:43 PM CDT IMPRESSION: 1. Injection for cervical, thoracic, and lumbar myelogram. 2. Sufficient portion of contrast noted in the intrathecal space for diagnostic quality images; however, a portion of contrast noted to be in the epidural and intradural space, possibly secondary to subtle needle migration during procedure. 3. Please see separately reported CT myelography for more detailed description of associated findings. The attending radiologist, Dr. Sarthak Ga MD, was available during all critical portions of the procedure, has reviewed the image(s) and agrees with the content of this report. Ordered By: MELVIN YARBROUGH Interpreted By: Luis Alfredo Martinez MD, 02/01/2025 12:21 PM Narrative 02/01/2025 4:43 PM [address]T [address] [address] EXAMINATION: XR MYELOGRAM LUMBAR, XR MYELOGRAM THORACIC, XR MYELOGRAM CERVICAL EXAM TIME: 02/01/2025 10:16 AM HISTORY: Back pain. Radiculopathy. COMPARISON: CT abdomen pelvis 01/01/2021. CT head 04/30/2022. TECHNIQUE/FINDINGS: The procedure, as well as the risks and benefits of the procedure, were explained to the patient. Informed consent was obtained. A verification timeout was performed. Under fluoroscopic guidance, the L2-3 interlaminar space was localized, and the overlying skin was prepped in the usual sterile fashion. Once local analgesia had been achieved by infiltration of 1% lidocaine solution, a 20-gauge, 9 cm spinal needle was advanced without difficulty into the thecal sac with prompt return of clear colorless cerebrospinal fluid. A total of 12 cc of Isovue-M 300 was then instilled via a slow hand-injection into the thecal sac. The stylet was reinserted and the spinal needle was removed. The patient was tilted head down to encouraged contrast migration towards the cervical spine. Spot fluoroscopic images were obtained. During maneuvering, it was noted that a portion of the contrast injection was likely epidural and possibly intradural, possibly due to subtle needle migration during injection. Total fluoroscopic time utilized was 4.6 minutes, 6 image(s), and reference air kerma 60.6 mGy for this procedure. Procedure Note Sarthak Ga MD - 02/01/[address] [address] EXAMINATION: XR MYELOGRAM LUMBAR, XR MYELOGRAM THORACIC, XR MYELOGRAMCERVICAL EXAM TIME: 02/01/2025 10:16 AM HISTORY: Back pain. Radiculopathy. COMPARISON: CT abdomen pelvis 01/01/2021. CT head 04/30/2022. TECHNIQUE/FINDINGS: The procedure, as well as the risks and benefits ofthe procedure, were explained to the patient. Informed consent wasobtained. A verification timeout was performed. Under fluoroscopicguidance, the L2-3 interlaminar space was localized, and the overlyingskin was prepped in the usual sterile fashion. Once local analgesia hadbeen achieved by infiltration of 1% lidocaine solution, a 20-gauge, 9 cmspinal needle was advanced without difficulty into the thecal sac withprompt return of clear colorless cerebrospinal fluid. A total of 12 cc ofIsovue-M 300 was then instilled via a slow hand-injection into the thecalsac. The stylet was reinserted and the spinal needle was removed. Thepatient was tilted head down to encouraged contrast migration towards thecervical spine. Spot fluoroscopic images were obtained. Duringmaneuvering, it was noted that a portion of the contrast injection waslikely epidural and possibly intradural, possibly due to subtle needlemigration during injection. Total fluoroscopic time utilized was 4.6 minutes, 6 image(s), andreference air kerma 60.6 mGy for this procedure. IMPRESSION: 1. Injection for cervical, thoracic, and lumbar myelogram. 2. Sufficient portion of contrast noted in the intrathecal space fordiagnostic quality images; however, a portion of contrast noted to be inthe epidural and intradural space, possibly secondary to subtle needlemigration during procedure. 3. Please see separately reported CT myelography for more detaileddescription of associated findings. The attending radiologist, Dr. Sarthak Ga MD, was available during allcritical portions of the procedure, has reviewed the image(s) and agreeswith the content of this report. Ordered By: MELVIN YARBROUGH Interpreted By: Luis Alfredo Martinez MD, 02/01/2025 12:21 PM us Melvin Yarbrough MD FLUOROSCOPY Final Re sult * CT THOR SPINE POST MYELO (02/01/2025 10:25 AM CDT) Anatomical Region Laterality Modality Spine Computed Tomogra phy 02/08/2025 9:04 AM CDT Impressions 02/08/2025 9:30 AM CDT IMPRESSION: 1. Mild to moderate age indeterminate, but subacute to chronic appearing, superior endplate compression deformity of the T12 vertebral body, new when compared with the prior CT abdomen and pelvis from 01/01/2021 and lumbar spine radiographs from 10/05/2021. Correlation with point tenderness recommended. If warranted clinically, MRI thoracic spine could be beneficial for further characterization. 2. Mild to moderate multilevel cervical spondylosis, as described above. 3. Mild to moderate thoracic spondylosis, as described above. 4. Mild to moderate lumbar spondylosis, as described above. 5. Moderate osseous demineralization. 6. Small to medium hiatal hernia. Ordered By: MELVIN YARBROUGH Interpreted By: Deep Chavis MD, 02/08/2025 9:04 AM Narrative 02/08/2025 9:30 AM CDT [place] [address] Examination: CT LUMB SPINE POST MYELO, CT THOR SPINE POST MYELO, CT CERV SPINE POST MYELO, 02/01/2025 10:25 AM. Technique: Computed tomographic images of the cervical, thoracic and lumbar spine were obtained after the administration of myelographic contrast. Additional coronal and sagittal reformatted images were generated at a separate workstation. A dose lowering technique was used for this procedure, which may include, but is not limited to, dose reduction technique, automated exposure control, the use of iterative reconstruction, and ALARA (As Low As Reasonably Achievable) / Image Gently techniques. Clinical history: Disease of spinal cord, myelopathy Comparison: CT abdomen and pelvis 01/01/2021 Findings: CERVICAL SPINE: The cervical vertebral bodies and facets are well aligned. The cervical vertebral body heights are preserved. There is intervertebral disc height loss at C4-5 with endplate degenerative change at this level. No acute fracture nor destructive process of the visualized osseous structures. No abnormal prevertebral or paraspinal soft tissue swelling. C2-3: No significant spinal canal stenosis. Uncovertebral joint hypertrophy. Moderate left neural foraminal stenosis. No right neural foraminal stenosis. C3-4: Disc bulge impressing the ventral thecal sac. Mild spinal canal stenosis. Uncovertebral joint hypertrophy. Mild to moderate bilateral neural foraminal stenosis. C4-5: Disc bulge impressing the ventral thecal sac. Mild spinal canal stenosis. Uncovertebral joint hypertrophy. Mild to moderate right neural foraminal stenosis. Mild left neural foraminal stenosis. C5-6: Disc bulge impressing the ventral thecal sac. Mild spinal canal stenosis. Uncovertebral joint hypertrophy. Moderate left neural foraminal stenosis. Moderate right neural foraminal stenosis. C6-7: No significant spinal canal or neural foraminal stenosis. C7-T1: No significant spinal canal or neural foraminal stenosis. THORACIC SPINE: There are 12 rib-bearing thoracic type vertebral bodies. Thoracic vertebral bodies and facets are well aligned. Mild to moderate subacute to chronic appearing superior endplate compression deformity of the T12 vertebral body. Intervertebral disc height loss at T8-9 and to a lesser extent at T10-11. Contrast within the intradural space along the dorsal aspect of the T4-T9 thoracic spine, iatrogenic. Disc bulge at T10-11 impressing the ventral thecal sac contributing to moderate spinal canal stenosis. Disc bulges at T11-T12 impressing the ventral thecal sac contributing to mild spinal canal stenosis. Mild right T2-3 neural foraminal stenosis secondary to facet joint hypertrophy. Mild to moderate bilateral T10-11 neural foraminal stenosis secondary to facet joint hypertrophy. Moderate osseous demineralization. Small to medium hiatal hernia. LUMBAR SPINE: There are 5 nonrib-bearing lumbar-type vertebral bodies. The lumbar vertebral bodies and facets are well aligned. Mild chronic appearing superior endplate compression deformity of the L5 vertebral body. The lumbar vertebral body heights are otherwise preserved. There is a hemangioma within the L2 vertebral body. The conus medullaris terminates at L2, normal. There is a normal distribution of the cauda equina within the thecal sac. Partial interdural injection (best seen on series 9 image 29). Partially characterized retained electrode within a right sacral foramen L1-2: Disc bulge impressing the ventral thecal sac. Mild spinal canal stenosis. Mild to moderate facet hypertrophy. Mild bilateral neural foraminal stenosis L2-3: No significant spinal canal or neural foraminal stenosis. L3-4: No significant spinal canal or neural foraminal stenosis. L4-5: Disc bulge impressing the ventral thecal sac. Mild spinal canal stenosis. Moderate facet hypertrophy. Mild bilateral neural foraminal stenosis. L5-S1: No significant spinal canal stenosis. Moderate to marked facet hypertrophy. Mild to moderate bilateral neural foraminal stenosis. Procedure Note Deep Chavis MD - 02/08/[address] [address] Examination: CT LUMB SPINE POST MYELO, CT THOR SPINE POST MYELO, CT CERVSPINE POST MYELO, 02/01/2025 10:25 AM. Technique: Computed tomographic images of the cervical, thoracic andlumbar spine were obtained after the administration of myelographiccontrast. Additional coronal and sagittal reformatted images weregenerated at a separate workstation. A dose lowering technique was usedfor this procedure, which may include, but is not limited to, dosereduction technique, automated exposure control, the use of iterativereconstruction, and ALARA (As Low As Reasonably Achievable) / Image Gentlytechniques. Clinical history: Disease of spinal cord, myelopathy Comparison: CT abdomen and pelvis 01/01/2021 Findings: CERVICAL SPINE: The cervical vertebral bodies and facets are well aligned.The cervical vertebral body heights are preserved. There is intervertebraldisc height loss at C4-5 with endplate degenerative change at this level.No acute fracture nor destructive process of the visualized osseousstructures. No abnormal prevertebral or paraspinal soft tissue swelling. C2-3: No significant spinal canal stenosis. Uncovertebral jointhypertrophy. Moderate left neural foraminal stenosis. No right neuralforaminal stenosis. C3-4: Disc bulge impressing the ventral thecal sac. Mild spinal canalstenosis. Uncovertebral joint hypertrophy. Mild to moderate bilateralneural foraminal stenosis. C4-5: Disc bulge impressing the ventral thecal sac. Mild spinal canalstenosis. Uncovertebral joint hypertrophy. Mild to moderate right neuralforaminal stenosis. Mild left neural foraminal stenosis. C5-6: Disc bulge impressing the ventral thecal sac. Mild spinal canalstenosis. Uncovertebral joint hypertrophy. Moderate left neural foraminalstenosis. Moderate right neural foraminal stenosis. C6-7: No significant spinal canal or neural foraminal stenosis. C7-T1: No significant spinal canal or neural foraminal stenosis. THORACIC SPINE: There are 12 rib-bearing thoracic type vertebral bodies.Thoracic vertebral bodies and facets are well aligned. Mild to moderatesubacute to chronic appearing superior endplate compression deformity ofthe T12 vertebral body. Intervertebral disc height loss at T8-9 and to alesser extent at T10-11. Contrast within the intradural space along thedorsal aspect of the T4-T9 thoracic spine, iatrogenic. Disc bulge [id number] impressing the ventral thecal sac contributing to moderate spinalcanal stenosis. Disc bulges at T11-T12 impressing the ventral thecal saccontributing to mild spinal canal stenosis. Mild right T2-3 neuralforaminal stenosis secondary to facet joint hypertrophy. Mild to moderatebilateral T10-11 neural foraminal stenosis secondary to facet jointhypertrophy. Moderate osseous demineralization. Small to medium hiatalhernia. LUMBAR SPINE: There are 5 nonrib-bearing lumbar-type vertebral bodies. Thelumbar vertebral bodies and facets are well aligned. Mild chronicappearing superior endplate compression deformity of the L5 vertebralbody. The lumbar vertebral body heights are otherwise preserved. There lexi hemangioma within the L2 vertebral body. The conus medullaris terminatesat L2, normal. There is a normal distribution of the cauda equina withinthe thecal sac. Partial interdural injection (best seen on series 9 image29). Partially characterized retained electrode within a right sacralforamen L1-2: Disc bulge impressing the ventral thecal sac. Mild spinal canalstenosis. Mild to moderate facet hypertrophy. Mild bilateral neuralforaminal stenosis L2-3: No significant spinal canal or neural foraminal stenosis. L3-4: No significant spinal canal or neural foraminal stenosis. L4-5: Disc bulge impressing the ventral thecal sac. Mild spinal canalstenosis. Moderate facet hypertrophy. Mild bilateral neural foraminalstenosis. L5-S1: No significant spinal canal stenosis. Moderate to marked facethypertrophy. Mild to moderate bilateral neural foraminal stenosis. IMPRESSION: 1. Mild to moderate age indeterminate, but subacute to chronic appearing,superior endplate compression deformity of the T12 vertebral body, newwhen compared with the prior CT abdomen and pelvis from 01/01/2021 andlumbar spine radiographs from 10/05/2021. Correlation with pointtenderness recommended. If warranted clinically, MRI thoracic spine couldbe beneficial for further characterization. 2. Mild to moderate multilevel cervical spondylosis, as describedabove. 3. Mild to moderate thoracic spondylosis, as described above. 4. Mild to moderate lumbar spondylosis, as described above. 5. Moderate osseous demineralization. 6. Small to medium hiatal hernia. Ordered By: MELVIN YARBROUGH Interpreted By: Deep Chavis MD, 02/08/2025 9:04 AM us Melvin Yarbrough MD CT Final Re sult * CT LUMB SPINE POST MYELO (02/01/2025 10:25 AM CDT) Anatomical Region Laterality Modality Spine Computed Tomogra phy 02/08/2025 9:04 AM CDT Impressions 02/08/2025 9:30 AM CDT IMPRESSION: 1. Mild to moderate age indeterminate, but subacute to chronic appearing, superior endplate compression deformity of the T12 vertebral body, new when compared with the prior CT abdomen and pelvis from 01/01/2021 and lumbar spine radiographs from 10/05/2021. Correlation with point tenderness recommended. If warranted clinically, MRI thoracic spine could be beneficial for further characterization. 2. Mild to moderate multilevel cervical spondylosis, as described above. 3. Mild to moderate thoracic spondylosis, as described above. 4. Mild to moderate lumbar spondylosis, as described above. 5. Moderate osseous demineralization. 6. Small to medium hiatal hernia. Ordered By: MELVIN YARBROUGH Interpreted By: Deep Chavis MD, 02/08/2025 9:04 AM Narrative 02/08/2025 9:30 AM CDT [address] [address] Examination: CT LUMB SPINE POST MYELO, CT THOR SPINE POST MYELO, CT CERV SPINE POST MYELO, 02/01/2025 10:25 AM. Technique: Computed tomographic images of the cervical, thoracic and lumbar spine were obtained after the administration of myelographic contrast. Additional coronal and sagittal reformatted images were generated at a separate workstation. A dose lowering technique was used for this procedure, which may include, but is not limited to, dose reduction technique, automated exposure control, the use of iterative reconstruction, and ALARA (As Low As Reasonably Achievable) / Image Gently techniques. Clinical history: Disease of spinal cord, myelopathy Comparison: CT abdomen and pelvis 01/01/2021 Findings: CERVICAL SPINE: The cervical vertebral bodies and facets are well aligned. The cervical vertebral body heights are preserved. There is intervertebral disc height loss at C4-5 with endplate degenerative change at this level. No acute fracture nor destructive process of the visualized osseous structures. No abnormal prevertebral or paraspinal soft tissue swelling. C2-3: No significant spinal canal stenosis. Uncovertebral joint hypertrophy. Moderate left neural foraminal stenosis. No right neural foraminal stenosis. C3-4: Disc bulge impressing the ventral thecal sac. Mild spinal canal stenosis. Uncovertebral joint hypertrophy. Mild to moderate bilateral neural foraminal stenosis. C4-5: Disc bulge impressing the ventral thecal sac. Mild spinal canal stenosis. Uncovertebral joint hypertrophy. Mild to moderate right neural foraminal stenosis. Mild left neural foraminal stenosis. C5-6: Disc bulge impressing the ventral thecal sac. Mild spinal canal stenosis. Uncovertebral joint hypertrophy. Moderate left neural foraminal stenosis. Moderate right neural foraminal stenosis. C6-7: No significant spinal canal or neural foraminal stenosis. C7-T1: No significant spinal canal or neural foraminal stenosis. THORACIC SPINE: There are 12 rib-bearing thoracic type vertebral bodies. Thoracic vertebral bodies and facets are well aligned. Mild to moderate subacute to chronic appearing superior endplate compression deformity of the T12 vertebral body. Intervertebral disc height loss at T8-9 and to a lesser extent at T10-11. Contrast within the intradural space along the dorsal aspect of the T4-T9 thoracic spine, iatrogenic. Disc bulge at T10-11 impressing the ventral thecal sac contributing to moderate spinal canal stenosis. Disc bulges at T11-T12 impressing the ventral thecal sac contributing to mild spinal canal stenosis. Mild right T2-3 neural foraminal stenosis secondary to facet joint hypertrophy. Mild to moderate bilateral T10-11 neural foraminal stenosis secondary to facet joint hypertrophy. Moderate osseous demineralization. Small to medium hiatal hernia. LUMBAR SPINE: There are 5 nonrib-bearing lumbar-type vertebral bodies. The lumbar vertebral bodies and facets are well aligned. Mild chronic appearing superior endplate compression deformity of the L5 vertebral body. The lumbar vertebral body heights are otherwise preserved. There is a hemangioma within the L2 vertebral body. The conus medullaris terminates at L2, normal. There is a normal distribution of the cauda equina within the thecal sac. Partial interdural injection (best seen on series 9 image 29). Partially characterized retained electrode within a right sacral foramen L1-2: Disc bulge impressing the ventral thecal sac. Mild spinal canal stenosis. Mild to moderate facet hypertrophy. Mild bilateral neural foraminal stenosis L2-3: No significant spinal canal or neural foraminal stenosis. L3-4: No significant spinal canal or neural foraminal stenosis. L4-5: Disc bulge impressing the ventral thecal sac. Mild spinal canal stenosis. Moderate facet hypertrophy. Mild bilateral neural foraminal stenosis. L5-S1: No significant spinal canal stenosis. Moderate to marked facet hypertrophy. Mild to moderate bilateral neural foraminal stenosis. Procedure Note Deep Chavis MD - 02/08/[address] [id number] Examination: CT LUMB SPINE POST MYELO, CT THOR SPINE POST MYELO, CT CERVSPINE POST MYELO, 02/01/2025 10:25 AM. Technique: Computed tomographic images of the cervical, thoracic andlumbar spine were obtained after the administration of myelographiccontrast. Additional coronal and sagittal reformatted images weregenerated at a separate workstation. A dose lowering technique was usedfor this procedure, which may include, but is not limited to, dosereduction technique, automated exposure control, the use of iterativereconstruction, and ALARA (As Low As Reasonably Achievable) / Image Gentlytechniques. Clinical history: Disease of spinal cord, myelopathy Comparison: CT abdomen and pelvis 01/01/2021 Findings: CERVICAL SPINE: The cervical vertebral bodies and facets are well aligned.The cervical vertebral body heights are preserved. There is intervertebraldisc height loss at C4-5 with endplate degenerative change at this level.No acute fracture nor destructive process of the visualized osseousstructures. No abnormal prevertebral or paraspinal soft tissue swelling. C2-3: No significant spinal canal stenosis. Uncovertebral jointhypertrophy. Moderate left neural foraminal stenosis. No right neuralforaminal stenosis. C3-4: Disc bulge impressing the ventral thecal sac. Mild spinal canalstenosis. Uncovertebral joint hypertrophy. Mild to moderate bilateralneural foraminal stenosis. C4-5: Disc bulge impressing the ventral thecal sac. Mild spinal canalstenosis. Uncovertebral joint hypertrophy. Mild to moderate right neuralforaminal stenosis. Mild left neural foraminal stenosis. C5-6: Disc bulge impressing the ventral thecal sac. Mild spinal canalstenosis. Uncovertebral joint hypertrophy. Moderate left neural foraminalstenosis. Moderate right neural foraminal stenosis. C6-7: No significant spinal canal or neural foraminal stenosis. C7-T1: No significant spinal canal or neural foraminal stenosis. THORACIC SPINE: There are 12 rib-bearing thoracic type vertebral bodies.Thoracic vertebral bodies and facets are well aligned. Mild to moderatesubacute to chronic appearing superior endplate compression deformity ofthe T12 vertebral body. Intervertebral disc height loss at T8-9 and to alesser extent at T10-11. Contrast within the intradural space along thedorsal aspect of the T4-T9 thoracic spine, iatrogenic. Disc bulge [id number] impressing the ventral thecal sac contributing to moderate spinalcanal stenosis. Disc bulges at T11-T12 impressing the ventral thecal saccontributing to mild spinal canal stenosis. Mild right T2-3 neuralforaminal stenosis secondary to facet joint hypertrophy. Mild to moderatebilateral T10-11 neural foraminal stenosis secondary to facet jointhypertrophy. Moderate osseous demineralization. Small to medium hiatalhernia. LUMBAR SPINE: There are 5 nonrib-bearing lumbar-type vertebral bodies. Thelumbar vertebral bodies and facets are well aligned. Mild chronicappearing superior endplate compression deformity of the L5 vertebralbody. The lumbar vertebral body heights are otherwise preserved. There lexi hemangioma within the L2 vertebral body. The conus medullaris terminatesat L2, normal. There is a normal distribution of the cauda equina withinthe thecal sac. Partial interdural injection (best seen on series 9 image29). Partially characterized retained electrode within a right sacralforamen L1-2: Disc bulge impressing the ventral thecal sac. Mild spinal canalstenosis. Mild to moderate facet hypertrophy. Mild bilateral neuralforaminal stenosis L2-3: No significant spinal canal or neural foraminal stenosis. L3-4: No significant spinal canal or neural foraminal stenosis. L4-5: Disc bulge impressing the ventral thecal sac. Mild spinal canalstenosis. Moderate facet hypertrophy. Mild bilateral neural foraminalstenosis. L5-S1: No significant spinal canal stenosis. Moderate to marked facethypertrophy. Mild to moderate bilateral neural foraminal stenosis. IMPRESSION: 1. Mild to moderate age indeterminate, but subacute to chronic appearing,superior endplate compression deformity of the T12 vertebral body, newwhen compared with the prior CT abdomen and pelvis from 01/01/2021 andlumbar spine radiographs from 10/05/2021. Correlation with pointtenderness recommended. If warranted clinically, MRI thoracic spine couldbe beneficial for further characterization. 2. Mild to moderate multilevel cervical spondylosis, as describedabove. 3. Mild to moderate thoracic spondylosis, as described above. 4. Mild to moderate lumbar spondylosis, as described above. 5. Moderate osseous demineralization. 6. Small to medium hiatal hernia. Ordered By: MELVIN YARBROUGH Interpreted By: Deep Chavis MD, 02/08/2025 9:04 AM Melvin Yarbrough MD CT Final Re sult * CT CERV SPINE POST MYELO (02/01/2025 10:25 AM CDT) Anatomical Region Laterality Modality Spine Computed Tomogra phy 02/08/2025 9:04 AM CDT Impressions 02/08/2025 9:30 AM CDT IMPRESSION: 1. Mild to moderate age indeterminate, but subacute to chronic appearing, superior endplate compression deformity of the T12 vertebral body, new when compared with the prior CT abdomen and pelvis from 01/01/2021 and lumbar spine radiographs from 10/05/2021. Correlation with point tenderness recommended. If warranted clinically, MRI thoracic spine could be beneficial for further characterization. 2. Mild to moderate multilevel cervical spondylosis, as described above. 3. Mild to moderate thoracic spondylosis, as described above. 4. Mild to moderate lumbar spondylosis, as described above. 5. Moderate osseous demineralization. 6. Small to medium hiatal hernia. Ordered By: MELVIN YARBROUGH Interpreted By: Deep Chavis MD, 02/08/2025 9:04 AM Narrative 02/08/2025 9:30 AM CDT [facility] [address], [place] [address] Examination: CT LUMB SPINE POST MYELO, CT THOR SPINE POST MYELO, CT CERV SPINE POST MYELO, 02/01/2025 10:25 AM. Technique: Computed tomographic images of the cervical, thoracic and lumbar spine were obtained after the administration of myelographic contrast. Additional coronal and sagittal reformatted images were generated at a separate workstation. A dose lowering technique was used for this procedure, which may include, but is not limited to, dose reduction technique, automated exposure control, the use of iterative reconstruction, and ALARA (As Low As Reasonably Achievable) / Image Gently techniques. Clinical history: Disease of spinal cord, myelopathy Comparison: CT abdomen and pelvis 01/01/2021 Findings: CERVICAL SPINE: The cervical vertebral bodies and facets are well aligned. The cervical vertebral body heights are preserved. There is intervertebral disc height loss at C4-5 with endplate degenerative change at this level. No acute fracture nor destructive process of the visualized osseous structures. No abnormal prevertebral or paraspinal soft tissue swelling. C2-3: No significant spinal canal stenosis. Uncovertebral joint hypertrophy. Moderate left neural foraminal stenosis. No right neural foraminal stenosis. C3-4: Disc bulge impressing the ventral thecal sac. Mild spinal canal stenosis. Uncovertebral joint hypertrophy. Mild to moderate bilateral neural foraminal stenosis. C4-5: Disc bulge impressing the ventral thecal sac. Mild spinal canal stenosis. Uncovertebral joint hypertrophy. Mild to moderate right neural foraminal stenosis. Mild left neural foraminal stenosis. C5-6: Disc bulge impressing the ventral thecal sac. Mild spinal canal stenosis. Uncovertebral joint hypertrophy. Moderate left neural foraminal stenosis. Moderate right neural foraminal stenosis. C6-7: No significant spinal canal or neural foraminal stenosis. C7-T1: No significant spinal canal or neural foraminal stenosis. THORACIC SPINE: There are 12 rib-bearing thoracic type vertebral bodies. Thoracic vertebral bodies and facets are well aligned. Mild to moderate subacute to chronic appearing superior endplate compression deformity of the T12 vertebral body. Intervertebral disc height loss at T8-9 and to a lesser extent at T10-11. Contrast within the intradural space along the dorsal aspect of the T4-T9 thoracic spine, iatrogenic. Disc bulge at T10-11 impressing the ventral thecal sac contributing to moderate spinal canal stenosis. Disc bulges at T11-T12 impressing the ventral thecal sac contributing to mild spinal canal stenosis. Mild right T2-3 neural foraminal stenosis secondary to facet joint hypertrophy. Mild to moderate bilateral T10-11 neural foraminal stenosis secondary to facet joint hypertrophy. Moderate osseous demineralization. Small to medium hiatal hernia. LUMBAR SPINE: There are 5 nonrib-bearing lumbar-type vertebral bodies. The lumbar vertebral bodies and facets are well aligned. Mild chronic appearing superior endplate compression deformity of the L5 vertebral body. The lumbar vertebral body heights are otherwise preserved. There is a hemangioma within the L2 vertebral body. The conus medullaris terminates at L2, normal. There is a normal distribution of the cauda equina within the thecal sac. Partial interdural injection (best seen on series 9 image 29). Partially characterized retained electrode within a right sacral foramen L1-2: Disc bulge impressing the ventral thecal sac. Mild spinal canal stenosis. Mild to moderate facet hypertrophy. Mild bilateral neural foraminal stenosis L2-3: No significant spinal canal or neural foraminal stenosis. L3-4: No significant spinal canal or neural foraminal stenosis. L4-5: Disc bulge impressing the ventral thecal sac. Mild spinal canal stenosis. Moderate facet hypertrophy. Mild bilateral neural foraminal stenosis. L5-S1: No significant spinal canal stenosis. Moderate to marked facet hypertrophy. Mild to moderate bilateral neural foraminal stenosis. Procedure Note Deep Chavis MD - 02/08/[address] [address] Examination: CT LUMB SPINE POST MYELO, CT THOR SPINE POST MYELO, CT CERVSPINE POST MYELO, 02/01/2025 10:25 AM. Technique: Computed tomographic images of the cervical, thoracic andlumbar spine were obtained after the administration of myelographiccontrast. Additional coronal and sagittal reformatted images weregenerated at a separate workstation. A dose lowering technique was usedfor this procedure, which may include, but is not limited to, dosereduction technique, automated exposure control, the use of iterativereconstruction, and ALARA (As Low As Reasonably Achievable) / Image Gentlytechniques. Clinical history: Disease of spinal cord, myelopathy Comparison: CT abdomen and pelvis 01/01/2021 Findings: CERVICAL SPINE: The cervical vertebral bodies and facets are well aligned.The cervical vertebral body heights are preserved. There is intervertebraldisc height loss at C4-5 with endplate degenerative change at this level.No acute fracture nor destructive process of the visualized osseousstructures. No abnormal prevertebral or paraspinal soft tissue swelling. C2-3: No significant spinal canal stenosis. Uncovertebral jointhypertrophy. Moderate left neural foraminal stenosis. No right neuralforaminal stenosis. C3-4: Disc bulge impressing the ventral thecal sac. Mild spinal canalstenosis. Uncovertebral joint hypertrophy. Mild to moderate bilateralneural foraminal stenosis. C4-5: Disc bulge impressing the ventral thecal sac. Mild spinal canalstenosis. Uncovertebral joint hypertrophy. Mild to moderate right neuralforaminal stenosis. Mild left neural foraminal stenosis. C5-6: Disc bulge impressing the ventral thecal sac. Mild spinal canalstenosis. Uncovertebral joint hypertrophy. Moderate left neural foraminalstenosis. Moderate right neural foraminal stenosis. C6-7: No significant spinal canal or neural foraminal stenosis. C7-T1: No significant spinal canal or neural foraminal stenosis. THORACIC SPINE: There are 12 rib-bearing thoracic type vertebral bodies.Thoracic vertebral bodies and facets are well aligned. Mild to moderatesubacute to chronic appearing superior endplate compression deformity ofthe T12 vertebral body. Intervertebral disc height loss at T8-9 and to alesser extent at T10-11. Contrast within the intradural space along thedorsal aspect of the T4-T9 thoracic spine, iatrogenic. Disc bulge [id number] impressing the ventral thecal sac contributing to moderate spinalcanal stenosis. Disc bulges at T11-T12 impressing the ventral thecal saccontributing to mild spinal canal stenosis. Mild right T2-3 neuralforaminal stenosis secondary to facet joint hypertrophy. Mild to moderatebilateral T10-11 neural foraminal stenosis secondary to facet jointhypertrophy. Moderate osseous demineralization. Small to medium hiatalhernia. LUMBAR SPINE: There are 5 nonrib-bearing lumbar-type vertebral bodies. Thelumbar vertebral bodies and facets are well aligned. Mild chronicappearing superior endplate compression deformity of the L5 vertebralbody. The lumbar vertebral body heights are otherwise preserved. There lexi hemangioma within the L2 vertebral body. The conus medullaris terminatesat L2, normal. There is a normal distribution of the cauda equina withinthe thecal sac. Partial interdural injection (best seen on series 9 image29). Partially characterized retained electrode within a right sacralforamen L1-2: Disc bulge impressing the ventral thecal sac. Mild spinal canalstenosis. Mild to moderate facet hypertrophy. Mild bilateral neuralforaminal stenosis L2-3: No significant spinal canal or neural foraminal stenosis. L3-4: No significant spinal canal or neural foraminal stenosis. L4-5: Disc bulge impressing the ventral thecal sac. Mild spinal canalstenosis. Moderate facet hypertrophy. Mild bilateral neural foraminalstenosis. L5-S1: No significant spinal canal stenosis. Moderate to marked facethypertrophy. Mild to moderate bilateral neural foraminal stenosis. IMPRESSION: 1. Mild to moderate age indeterminate, but subacute to chronic appearing,superior endplate compression deformity of the T12 vertebral body, newwhen compared with the prior CT abdomen and pelvis from 01/01/2021 andlumbar spine radiographs from 10/05/2021. Correlation with pointtenderness recommended. If warranted clinically, MRI thoracic spine couldbe beneficial for further characterization. 2. Mild to moderate multilevel cervical spondylosis, as describedabove. 3. Mild to moderate thoracic spondylosis, as described above. 4. Mild to moderate lumbar spondylosis, as described above. 5. Moderate osseous demineralization. 6. Small to medium hiatal hernia. Ordered By: MELVIN YARBROUGH Interpreted By: Deep Chavis MD, 02/08/2025 9:04 AM Melvin Yarbrough MD CT Final Re sult * PROTIME/INR, VENOUS (PROTHROMBIN TIME) (02/01/2025 7:36 AM CDT) PROTIME 10.5 9.4 - 12.5 SEC 02/01/2025 8:28 AM CDT [facility] INR 0.9 0.8 - 1.1 02/01/2025 8:28 AM CDT [facility] 02/01/2025 7:36 AM CDT Cesar Martinez MD LABORATORY Final Result [facility] [address] [place] [address], [id number] * (ABNORMAL) CBC W/DIFF AUTOMATED (02/01/2025 7:36 AM CDT) WBC 7.30 4.00 - 10.80 x10'3/uL 02/01/2025 7:44 AM CDT [facility] RBC 4.98 4.10 - 5.40 x10'6/uL 02/01/2025 7:44 AM CDT [facility] HGB 13.3 12.0 - 16.0 G/DL 02/01/2025 7:44 AM CDT [facility] HCT 42.3 36.0 - 47.0 % 02/01/2025 7:44 AM CDT [facility] MCV 84.9 78.0 - 100.0 FL 02/01/2025 7:44 AM CDT [facility] MCH 26.7(L) 27.0 - 31.0 PG 02/01/2025 7:44 AM CDT [facility] MCHC 31.4(L) 33.0 - 36.0 G/DL 02/01/2025 7:44 AM CDT [facility] RDW 13.8 11.5 - 14.5 % 02/01/2025 7:44 AM CDT [facility] PLT 345 150 - 350 x10'3/uL 02/01/2025 7:44 AM CDT [facility] MPV 8.9 7.4 - 10.4 FL 02/01/2025 7:44 AM CDT [facility] DIFFERENTIAL TYPE AUTOMATED DIFFERENTIAL 02/01/2025 7:44 AM CDT [facility] SEG NEUTROPHILS 52.9 % 7:44 AM CDT [facility] LYMPHOCYTES 29.7 % 02/01/2025 7:44 AM CDT [facility] MONOCYTES 8.4 % 02/01/2025 7:44 AM CDT [facility] EOSINOPHILS 7.3 % 02/01/2025 7:44 AM CDT [facility] BASOPHILS 1.4 % 02/01/2025 7:44 AM CDT [facility] IMMATURE GRANS % 0.3 % 02/02/20 7:44 AM CDT [facility] ABS. NEUTROPHILS 3.87 1.60 - 8.30 x10'3/uL 02/01/2025 7:44 AM CDT [facility] ABS. LYMPHOCYTES 2.17 0.80 - 4.70 x10'3/uL 02/01/2025 7:44 AM CDT [facility] ABS. MONOCYTES 0.61 0.00 - 1.50 x10'3/uL 02/01/2025 7:44 AM CDT [facility] ABS. EOSINOPHILS 0.53(H) 0.00 - 0.40 x10'3/uL 02/01/2025 7:44 AM CDT [facility] ABS. BASOPHILS 0.10 0.00 - 0.20 x10'3/uL 02/01/2025 7:44 AM CDT [facility] ABS. IMMATURE GRANULOCYTES 0.02 0.00 - 0.03 x10'3/uL 02/01/2025 7:44 AM CDT [facility] ABS. NUCLEATED RBC'S 0.00 0.00 - 0.01 x10'3/uL 02/01/2025 7:44 AM CDT [facility] NRBC % 0.0 % 02/01/2025 7:44 AM CDT [facility] 02/01/2025 7:36 AM CDT us Cesar Martinez MD LABORATORY Final Result [facility] [address] [place] [address], [id number] * Colonoscopy ( LICENSED MASSAGE PRACTITIONER) Narrative [facility] TO EPIC CONVERSION - LICENSED MASSAGE PRACTITIONER Documented hx of procedure Procedure Note , Generic ConversionMD - 08/13/2018 Documented hx of procedure Generic Jayashree English MD GI PROCEDURE ORDERABLES Final Result [facility] TO [facility] CONVERSION from Last 3 Months or Most Recently Relevant to Health Maintenance Insurance [facility] Advance Directives * Full Code (Latest Code Status on File) Date Activated Date Inactivated Comments 08/13/2020 12:36 AM 08/15/2020 1:23 PM Care Teams Light Bulb Tester Relationship Specialty Start Date End Date Topher Cruz MD [address] [place] [id number] PCP - General FAMILY PRACTICE 03/02/22 Manav Tripp MD Consulting Physician RHEUMATOLOGY 10/10/21
--- OUTSIDE RECORDS SUMMARY | 2025-04-11 01:46 | XMS_ITS | Referral Summary ---
Author Organization [facility] Address [address] [place] [address] Care Team Providers Care Safety Equipment Testing Specialist Name Role Phone Topher Cruz MD Primary Care Provider [phone] Tu Garrison MD Unavailable [phone] Allergies Active Allergy Reactions Criticality Noted Date Comments Bupropion Other (See comments) Low 12/20/2018 Agitation; Depression Metformin Anxiety Low 12/20/2018 Depression Morphine Swelling,Rash Medium Reaction: Rash, Medications ARIPiprazole (ABILIFY) 2 mg tablet TK 1 T PO DAILY 0 02/06/2019 Active gabapentin (NEURONTIN) 300 mg capsule Take 300 mg by mouth 3 (three) times a day Takes 2 tabs TID 5 11/28/2018 Active montelukast (SINGULAIR) 10 mg tablet TK 1 T PO D 3 01/15/2019 Active tiZANidine (ZANAFLEX) 4 mg tablet TK 1 T PO HS 5 02/07/2019 Active zolpidem (AMBIEN) 5 mg tablet TAKE 1 TABLET BY MOUTH AT BEDTIME NEEDED FOR SLEEP 0 02/14/2019 Active amitriptyline (ELAVIL) 50 mg tablet Take 50 mg by mouth nightly Active pantoprazole DR (PROTONIX) 40 mg EC tablet Take 40 mg by mouth daily Active levothyroxine (SYNTHROID, LEVOTHROID) 125 mcg tablet TK 1 T PO D 0 04/13/2019 Active ascorbic acid (VITAMIN C) 500 mg tablet,chewable Indications:Vit esparza deficiency prevention Take 1 tablet/chew tab (500 mg total) by mouth daily 30 tablet/chew tab 10/30/2019 Active cevimeline (EVOXAC) 30 mg capsule 12/03/2019 Active sulfaSALAzine EN (AZULFIDINE EN) 500 mg EC tablet 12/03/2019 Active albuterol HFA (PROVENTIL HFA,VENTOLIN HFA,PROAIR HFA) 90 mcg/actuation inhaler 03/06/2021 Active meloxicam (MOBIC) 15 mg tablet 2 (two) times a day 04/01/2022 Active furosemide (LASIX) 20 mg tablet Take 20 mg by mouth daily 03/04/2022 Active amLODIPine (NORVASC) 10 mg tablet Take 5 mg by mouth daily 02/03/2022 Active metoprolol XL (TOPROL-XL) 25 mg extended release tablet Take 25 mg by mouth daily 02/02/2022 Active atorvastatin (LIPITOR) 40 mg tablet Take 1 tablet by mouth daily 06/02/[address] (CYMBALTA) 60 mg capsule Take 60 mg by mouth daily 09/30/2022 Active Active Problems Problem Noted Date Diagnosed Date SI (sacroiliac) joint dysfunction 09/15/2022 Other spondylosis with radiculopathy, lumbar reg ion 09/15/2022 Thoracic spinal stenosis 09/15/2022 Low back pain, non-specific 01/14/2022 Chest pain 08/12/2020 Primary osteoarthritis of left hip 10/16/2019 Overview (10/16/2019): Added automatically from request for surgery [id number] Trochanteric bursitis of left hip 10/16/2019 Overview (10/16/2019): Added automatically from request for surgery [id number] Aftercare following right knee joint replacement surgery 04/16/2019 Primary osteoarthritis of right knee 03/21/2019 Overview (03/21/2019): Added automatically from request for surgery [id number] Systemic lupus erythematosus 02/23/2014 Overview (01/14/2017): SLE Social History Tobacco Use Types Packs/Day Years Used Date Smoking Tobacco: Never Smokeless Tobacco: Never Tobacco Cessation:Counseling Given: Not Answered Alcohol Use Standard Drinks/Week Comments Yes 0 (1 standard drink = 0.6 oz pur e alcohol) occasional AUDIT-C Answer Date Recorded Q1: How often do you have a drink containing alc ohol? Never 10/05/2022 Average Number of Drinks Not on file 022 Q3: How often do you have si x or more drinks on one occasion? Never 10/05/2022 PHQ-2 Answer Date Recorded PHQ-2 Score 0 06/01/2019 Comments No Sex and Gender Information Value Date Recorded Sex Assigned at Not on file Legal Sex Female 12:52 PM SOFTWARE DEVELOPMENT LEADER Gender Identity Not on file Sexual Orientation Not on file Last Filed Vital Signs Vital Sign Reading Time Taken Comments Blood Pressure 133/83 10/05/2022 3:19 PM SOFTWARE DEVELOPMENT LEADER Pulse 101 10/05/2022 3:19 PM SOFTWARE DEVELOPMENT LEADER Temperature 36.4 C (97.5 F) 10/05/2022 2:44 PM SOFTWARE DEVELOPMENT LEADER Respiratory Rate 20 10/05/2022 3:19 PM SOFTWARE DEVELOPMENT LEADER Oxygen Saturation 95% 10/05/2022 3:19 PM SOFTWARE DEVELOPMENT LEADER Inhaled Oxygen Concentration - - Weight 93 kg (205 lb) 10/05/2022 2:44 PM SOFTWARE DEVELOPMENT LEADER Height 167.6 cm (5' 6) 10/05/2022 2:44 PM SOFTWARE DEVELOPMENT LEADER Body Mass Index 33.09 10/05/2022 2:44 PM SOFTWARE DEVELOPMENT LEADER Plan of Treatment Not on file Goals Goal Patient Goal Type Associated Problems Recent Progress Patient-Stated? Author CCM Chronic Pain Care Plan Chronic Care Management Worsening(1 11/15/2021 12:27 PM SOFTWARE DEVELOPMENT LEADER) No Lynsey Jalloh RN Note: Problem: Chronic Pain Goals: 1. Minimize further functional decline 2. Maximize quality of life 3. Control pain Strategies: - Activity/exercise program recommendation - Conservative stepwise pain medicine strategy with multi-disciplinary approach - Recommend healthy lifestyle strategies and compensatory methods as needed Medical Devices Implanted Type Area Costume Designer Device Identifier Shelf Expiration Date Model / Serial / Lot Other - See Comments-10/10/19 14 Implanted:10/10 (Quantity not on file) Other - see comments N/A: Bladder Description:PT HAS INTERSTIM BLADDER STIMULATOR IMPLANTED [facility] [address] [facility] [employer] [id number] Attune Cementless Rotate Platform Knee 6 Baseplate Tibial - [id number] Implanted:Qty: 1 on 04/04/2019 by Tu Garrison MD at [facility] Right: Knee [employer] 11/09/2027 [id number] / / [id number] [employer] [id number] Attune Cruciate Retain Cementless Knee Right 5 Component Femoral - [id number] Implanted:Qty: 1 on 04/04/2019 by Tu Garrison MD at [facility] Right: Knee [employer] 02/07/2028 [id number] / / [id number] [employer] [id number] Attune 6mm Cruciate Retaining Rotate Platform Knee 5 Insert - [id number] Implanted:Qty: 1 on 04/04/2019 by Tu Garrison MD at [facility] Right: Knee [employer] 01/07/2023 [id number] / / [id number] [employer] [id number] Ryder 52mm 36mm Hip Neutral Liner Acetabular Altrx Sterile Latex Free - [id number] Implanted:Qty: 1 on 10/29/2019 by Tu Garrison MD at [facility] Left: Hip [employer] 09/08/2024 [id number] / / [id number] [employer] [id number] Ryder 52mm Sector Hip Shell Acetabular Gription Sterile Latex Free - [id number] Implanted:Qty: 1 on 10/29/2019 by Tu Garrisno MD at [facility] Left: Hip [employer] 09/08/2029 [id number] / / [id number] [employer] 1217--[id number] Ryder 6.5mm 25mm Acetabular Cancellous Screw Bone Sterile - [id number] Implanted:Qty: 1 on 10/29/2019 by Tu Garrison MD at [facility] Left: Hip [employer] 06/09/2029 1217-25-500 / / [id number] [employer] [id number] Articul/Kory 36mm Cementless Hip +8.5mm 12/14 Taper Head Femoral Latex Free - [id number] Implanted:Qty: 1 on 10/29/2019 by Tu Garrison MD at [facility] Left: Hip [employer] 04/08/2024 [id number] / / [id number] [employer] 0-11-050 Actis 105mm Collar Hip 5 Standard Offset Stem Femoral - [id number] Implanted:Qty: 1 on 10/29/2019 by Tu Garrison MD at [facility] Left: Hip [employer] 05/09/2029 [id number] / / [id number] Insurance [facility] [employer] [facility] [employer] [facility] [employer] Advance Directives For more information, please contact: [phone] * Full Code (Latest Code Status on File) Date Activated Date Inactivated Comments 10/29/2019 1:58 PM 10/30/2019 5:31 PM * Full Code Date Activated Date Inactivated Comments 04/04/2019 4:03 PM 04/05/2019 9:43 PM Care Teams Safety Equipment Testing Specialist Relationship Specialty Start Date End Date Topher Cruz MD [address] [place] [address] PCP - General Family Medicine 02/20/19 Tu Garrison MD [address] [place] [address] Surgeon Orthopedic Surgery 10/30/19
--- OUTSIDE RECORDS SUMMARY | 2025-04-11 01:47 | XMS_ITS | Continuity of Care Document ---
Author Organization [facility], [facility] Address [address] [place] [address] Care Team Providers Care Graphics Coordinator Name Role Phone JAVON MENA Supervisor Electronics Assembly RUBINA DAMICO Vascular Surgeon TOPHER CHAPMAN Primary Care Provider TOPHER CHAPMAN Referring Provider Assessment No assessment recorded. Plan of Treatment Reminders Order Date Submit Date Provider Last Modified By Organization Details Last Modified Time Details Appointments Post Op 15.EST 2024 09:15A M Dr. Manav Goldstein Not available Not available Not available [facility] Patient 15.EST 2024 08:15A M Dr. Barney Bettencourt Not available Not available Not available [facility] 15.EST 2024 10:00A M Dr. Manav Goldstein Not available Not available Not available Lab CBC 2024 025 [facility], [address] [place] [address], [address], 04/10/2025 15:32:55 BMP, serum or plasma [address] [facility] - [facility], [address] [place] [address], [address], 04/10/2025 15:55:19 hemoglob in A1c + average glucose, QN, blood [address] [facility], [address] [place] [address], [address], 04/10/2025 16:56:58 methicil zachary resistan t staphylo coccus aureus, culture, unspecif ied specimen 2024 025 [email or web address], [facility] [address], [address], 04/10/2025 11:32:20 Referral None recorded . Procedures None recorded . Surgeries None recorded . Imaging electroc ardiogra m, routine ECG, 12 leads min 2024 025 [facility], [address] [place], [address], 04/10/2025 11:32:20 Medication Orders None recorded . Patient TargetsNo targets recorded. Patient Instructions Encounter Date Encounter Id Patient Instructions Last Modified By Organization Details Last Modified Time 04/10/2025 [id number] Follow up at [facility] scheduled med visit which appears to be due next month, sooner of course, for any acute issues. Patient reports agreement and understanding with this plan. [email or web address] Not available 04/10/2025 11:00:19 Reason for Referral None Reported. Results Created Date Observation Date Name Description Value Unit Range Abnormal Flag Note LastModifiedBy Organization Detail LastModifiedTime 03/11/20 25 03/11/2025 XR, ribs, unila teral , w/ PA chest No observ ation record ed. [facility] Radiology [address] [place], [address], 03/11/2025 14:52:27 03/11/20 25 03/11/2025 XR, abdom en No observ ation record ed. [facility] Radiology [address] [place], [address], 03/11/2025 16:46:45 03/11/20 25 03/11/2025 XR, abdom en No observ ation record ed. [facility] Radiology [address] [place], [address], 03/12/2025 11:35:45 03/12/20 25 02/25/2025 XR, shoul dorian, 2 or more view No observ ation record ed. [email or web address] S[facility] Only - Sc Radiology [address] [place] [address], [address], 03/12/2025 08:37:58 03/18/20 25 03/18/2025 XR, abdom en No observ ation record ed. [facility] - Radiology [address] [place], [address], 03/18/2025 12:40:09 03/18/20 25 03/18/2025 XR, abdom en No observ ation record ed. [facility] - Radiology [address] [place], [address], 03/18/2025 13:36:02 04/01/20 25 01/29/2022 CT, thora cic spine , w/ contr ast No observ ation record ed. [email or web address] Not Available 2024 12:39:09 Result Notes None recorded. Problems Name Problem SNOMED Code Status Onset Date Resolution Date Notes Provider Name and Address Organization Details Recorded Time Screenin g colonosc opy Active see FHx (brother , colon CA). NmL Colonosc opy , , and (after poor prep on flex-sig ). Topher Chapman MD [address] [place] [address], [address], [facility] 5 21:44:57 Screenin g mammogra phy Active 2023 nmL Teresa Alfaro, PROPERTIES SUPERVISOR, TOLL TEST WORKER [address] [place] [address], [address], [facility] 4 18:41:14 Asthma [id number] Active methacho line dx '13 w/u chr cough. f/b Pulm Dr. Rutledge. Tx: Singulai r & PRN Albutero l. Dr. Rutledge planning RAST panel, con't allergy & GERD tx. - hx mouth sores w/ (multipl e) inhaled steroid( s). Topher Chapman MD [address] [place] [address], [place], [address], [facility] 5 07:25:55 Benign paroxysm al position al vertigo 168911656 Completed 202305/17/2024 04/30/22 dx made at [facility] ER for dizzines s (nmL CT brain, trop, CMP, CBC). Teresa Alfaro APRN, TOLL TEST WORKER [address] [facility], [facility] [place], [address], [facility] 4 11:03:18 Steatoti c liver disease 568061256 Active 2023 by US p elevated LFT's. Teresa Alfaro APRN, TOLL TEST WORKER [address] [place] [address], [place], [address], [facility] 4 11:05:28 Fibromya lgia 382888823 Active 2023 dx by Rheum 2017. Hx of positive RF in 2006, no response to of multiple agents, includin g hydroxyc hloroqui ne, methotre xate, leflunom krzysztof azathiop rine, CellCept , HUMIRA, Orencia, Actemra, RINVOQ, Xeljanz and Rituxan She previous ly did carry a rheumato id factor of 93 IU/mL in 2006, but her more recent connecti ve disease workup is all normal or negative save for SSA and SSB, TORI antibody elevatio ns Teresa Alfaro APRN, TOLL TEST WORKER [address] [facility], [facility] [place], [address], [facility] 5 21:57:54 History of attempte d suicide 625951630 Completed 202305/17/2024 intentio nal overdose . IP hospital stay at [place] . See Depressi on. Teresa Alfaro APRN, TOLL TEST WORKER [address] [place] [address], [place], [address], [facility] 4 11:07:51 Hyperlip idemia 26483391 Active 2023 Tx atorvast atin (see also Hypertig lyceride vincent). Ezetimib e in while seeing other PCP. LDL 52 SHREYA GOETZ NP [address] [place] [address], [address], [facility] 4 16:18:18 Essentia l hyperten paresh 89669312 Active 2023 labile BP's in mid-[facility]. Cardiolo gy started amlodipi ne (in setting of workup exertion al chest pain), and increase d dose along w/ added metoprol ol 02/08/22. Also on Lasix. Amlodipi ne then changed to Losartan in attempt to reduce constipa ting medicati ons (BP appears adequate ly controll ed on nurse check 04/04/25) . Topher Chapman MD [address] [place] [address], [address], [facility] 5 15:32:02 Hypothyr oidism 59396859 Active 2023 Dx . Tx levothyr oxine. TSH 1.35 Teresa Alfaro APRN, TOLL TEST WORKER [address] [place] [address], [address], [facility] 4 10:09:27 Osteopen ia 749747744 Active 2023 BMD at [facility]; FRAX below bisphos tx. Repeat due Teresa Alfaro APRN, TOLL TEST WORKER [address] [place] [address], [address], [facility] 5 18:23:35 Insomnia 771104398 Active 2023 Modest Tx ambien since age 30's. Amitript yline add-on 10/27/16. - Hx OTC's & Lunesta ineffcti v Teresa E White, PROPERTIES SUPERVISOR, TOLL TEST WORKER [address] , [facility] [place], [address], [facility] 4 17:39:19 Palpitat ions 83537013 Active 2023 episode of tachycar ken noted by ptDarren George mx nmL. Cardiolo gy f/u planned. Teresa Alfaro, PROPERTIES SUPERVISOR, TOLL TEST WORKER [address] [facility], [facility] [place], [address], [facility] 4 12:24:03 Pain of multiple joints 78148377 Active 2023 Barney Bettencourt MD [address] [facility], [facility] [place], [address], [facility] 5 09:40:45 Bilatera l elbow joint pain 12739314171 211641 Active 2023 Barney Bettencourt MD [address] [facility] [place], [address], [facility] 4 11:26:23 Osteoart hritis of left glenohum eral joint 39561116830 99948 Active 2023 Julita Mohamud [facility] 5 12:00:10 Tendinit is of left rotator cuff 77508048813 521260 Active 2023 CHANDLER RAI PA-C [address] [facility], [facility] [place], [address], [facility] 4 10:25:47 Chest pain 72699380 Active 2023 treadmil l neg for ischemia . 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 Positive repeat testing (in lead-up to posssibl e GI 'scope for 03/28/25) , indicati ng Nasal Mupiroce n plus Chlorhex bath x7d. MRSA screen Negative then 03/14/25 & 03/18/25 (Neg x2 then cleared for surgery) . Topher Chapman MD [address] [place] [address], [place], [address], [facility] 5 21:43:40 Myocardi al bridge of coronary artery 487802227 Active 2023 SHREYA GOETZ NP [address] [facility], [facility] [place], [address], [facility] 4 16:17:06 Dyspnea on exertion 99559312 Active 2023 SHREYA GOETZ, LELAND [address] [place] [address], [address], [facility] 4 16:18:54 Stiffnes s of right knee 29852467876 9100 Active s/p TKA just over age 50. Topher Chapman MD [address] [place] [address], [address], [facility] 5 07:43:24 Chronic low back pain 035355003 Active w/ radiculo richy. Tx BID Hydrocod one since early . Hx CT myelogra m: broad based disc protrusi on T10-T11 w/ mass effect on thecal sac & mild cord compress ion. [facility] offerd IR pain manageme nt consult ordered (to review injxn vs ablation ). See disc prolapse Teresa Alfaro APRN, TOLL TEST WORKER [address] [place] [address], [address], [facility] 5 08:11:22 Postmeno pausal osteopen ia 695863570 Active 2023 Teresa Alfaro APRN, TOLL TEST WORKER [address] [place] [address], [address], [facility] 4 11:32:13 Chronic cough 25026074 Active f/b Pulmonol ogy. suspecte d postnasa l drip and GERD. Topher Chapman MD [address] [place] [address], [address], [facility] 5 07:49:01 Moderate recurren t major depressi on 70810747 Active Improved w/ Duloxeti ne and Abilify, & counseli ng. - Prior hx Lexapro (inad' response ). Acute worsenin g & suicide attempt while OFF meds . - hx amitript yline ineffect bhargavi for mood (separat selina Rx'd fro fibromya lgia / insomnia ). Topher Chapman MD [address] [place] [address], [address], [facility] 5 07:36:23 Morbid obesity 652817899 Active consider ing Bariatri c Surg eval (as of ). Topher Chapman MD [address] [place] [address], [address], [facility] 5 07:41:38 Acute urinary tract infectio n 412302064 Active 12/06/24 on w/u for elevated creatini ne (which was transien t & returnte d to nmL). Tx cefuroxi me (E.coli, Levaquin resistan t). Short-in terval recurrnc e (E.coli, Cipro resistan t), Tx Macrobid 12/22/24. Consider vaginal estrogen ppx if freq' recurrnc es (discuss ed 12/22/24) . Topher Chapman MD [address] [place] [address], [address], [facility] 5 11:05:11 Interver tebral disc prolapse 05378300 Active 2024 [facility] spine surg on board. repeat myelogra m (hx of T10-11 disc prolapse ) shows compress ion deformin ty at T12. Disc bulge at T10-11 impressi ng the ventral thecal sac contribu ting to moderate spinal canal stenosis . Disc bulges at T11-T12 impressi ng the ventral thecal sac contribu ting to mild spinal canal stenosis . Plan pain manageme nt referral to . Teresa Alfaro, PROPERTIES SUPERVISOR, TOLL TEST WORKER [address] [place] [address], [address], [facility] 5 22:03:28 Rib pain 941550670 Active 2024 sx since early . Refracto ry to predniso ne burst (per rheum) & hydrocod one. ER w/u unremark able, aside for throacic CT s/o DDD. Hx of T10-11 disc protrusi on on myelogra m in 2021. Possible nerve pain related to this. Pending ortho spine eval. Lio Angelo null, [facility] 5 18:03:14 Varicose veins of lower extremit y 45018362 Active 2024 Meagan Delgado, PROPERTIES SUPERVISOR, TOLL TEST WORKER [address] , [facility] [place], [address], [facility] 5 10:27:42 Pain of left shoulder joint 69849889304 764597 Active 2024 Mariama Vega null, [facility] 5 14:13:24 Early satiety 568169275 Active 2024 WILLIAM Espinoza-C [address] , [facility] [place], [address], [facility] 5 09:37:14 Epigastr ic pain 38494953 Active (w/ Dr. Lockett) and (w/ GI) EGD c/w gastriti s. Sx persisti ng despite Protonix , Pepcid & Carafate . GI onboard . After unremark able CTA abd/ pelvis , GI suspecte d chronic constipa tion. Colace / Miralax and fiber advised then. KUB 03/18/25: moderate stool burden (note also a number of regular med's may contribu te to constipa tion indicati ng consider dose redxn by PCP if not imprvd w/ those GI strategi es). - colonosc opy nmL. Topher Chapman MD [address] , [facility] [place], [address], [facility] 5 21:48:22 Cramp in calf 973548852 Active ideopath ic, since age 40. Control w/ QHS Tizatyrese ne (risks discusse d 07/10/13) . Topher Chapman MD [address] , [facility] [place], [address], [facility] 5 07:30:08 Chronic pain of right upper limb 94129211631 908346 Completed f/b Ortho, where suspecte d impingem ent. Hx celebrex tx (spring) until Rheum d/c'd in favor of alternat e strategi es given concurre nt RA. - MRI contrain dicated by implant bladder stim device. Topher Chapman MD [address] [facility], [place], [address], [facility] 5 07:39:49 Pain of left knee region 40578705722 4109 Completed MRI '13: minimal OA, small effzn, small Pradhan's cyst. s/p intra-ar tic inj (f/u Ortho PRN). Topher Chapman MD [address] [place] [address], [address], [facility] 5 07:40:33 Obstruct bhargavi sleep apnea syndrome 89187451 Active Repeat Sleep Study ' (BMI 32): Mild, rec'd weight loss & CPAP if insrnce covrage. Topher Chapman MD [address] [facility], [place], [address], [facility] 5 07:42:23 Urinary incontin ence 228392507 Active f/b Urology Dr. Narayanan. () mid-uret hral sling, & improv'd w/ Botox inj' by Urology started mid . Return to Urology where-in planned to resume Botox injxns & likely procedur e for urehral bulking inagent. - also intermit ' self-cat h' per Urology . And hx InterSti m device (removed spring). Topher Chapman MD [address] [place] [address], [address], [facility] 5 08:59:16 [facility]ache 301152033 [facility], [facility] 5 12:12:31 Primary fibromya lgia syndrome 92442258 Active 2024 Barney Bettencourt MD [address] [place] [address], [place], [address], [facility] 5 09:30:13 Hiatal hernia 86524647 Active 2024 small to medium, noted on CT myelogra m Teresa Alfaro, PROPERTIES SUPERVISOR, TOLL TEST WORKER [address] [facility], [facility] [place], [address], [facility] 5 07:59:42 Chronic constipa tion 781157423 Active 2024 Start daily miralax/ colace Crystal Barker PROPERTIES SUPERVISOR [address] [place] [address], [address], [facility] 5 10:12:14 Diarrhea 61978560 Active 2024 Og Capellan MD [address] [place] [address], [place], [address], [facility] 5 15:35:26 Gastroes ophageal reflux disease without esophagi tis 751441056 Active 2024 Control w/ Protonix . + Hpylori stool test tx'd while pt living in [place] . Sx impv'd, but recurrin g. Add famotidi ne. EGD shows gastric erosions , reflux. Stomach bx: complete intestin al metaplas ia, neg Hpylori. Crystal Barker, PROPERTIES SUPERVISOR [address] [place] [address], [address], [facility] 5 09:08:38 Triggeri ng of digit 550042480 Active 2024 [facility] 5 22:32:58 Closed fracture of single right rib 43472061562 862765 Active 2024 11th rib on the R. Non-disp laced. Plan lidocain e patches and OTC pain meds. 03/12/25 Tramadol added for pain. Teresa Alfaro, PROPERTIES SUPERVISOR, TOLL TEST WORKER [address] [facility], [facility] [place], [address], [facility] 5 10:24:04 Dyslipid emia 660506422 Active 2024 SHREYA GOETZ, LELAND [address] [facility], [facility] [place], [address], [facility] 5 11:13:20 Bilatera l carpal tunnel syndrome 67887369354 002864 Active 2024 noted on nerve conducti on studies performe d by ortho for maranda gurrola. Crystal Barker APRN [address] [facility], [place], [address], [facility] 5 12:21:29 Lumbar radiculo richy 220334943 Active 2024 L5 moderate ly severe - note on EMG studies per ortho Crystal Barker APRN [address] [facility], [facility] [place], [address], [facility] 5 12:24:37 Cervical radiculo richy 41226869 Active 2024 Bilatera l at C6 noted on EMG studies per ortho. Crystal Barker APRN [address] [facility], [facility] [place], [address], [facility] 5 12:25:20 Prediabe chhaya 101598618 Active 2024 BS 101 on BMP, A1c then 6.1%. Recheck annually . Crystal Barker APRN [address] [facility], [place], [address], [facility] 5 17:24:04 Problem Notes None recorded. Procedures Surgical History Date Name Laterality Status Provider Name and Address Organization Details Recorded Time 02/26/20 SC Procedure completed Manav Goldstein MD [address] [place] [address], [address], [facility] 03/01/2025 06:25:02 11/23/19 25 excision of varicose vein completed Aria Moe [facility] 2024 12:47:35 09/04/20 24 arthroplasty of left shoulder completed Lyssa Taylor [facility] 09/14/2024 12:45:37 07/10/20 24 SC Cardio Treadmill completed Javon Mena MD [address] [place] [address], [address], [facility] 07/10/2024 16:26:17 09/09/20 17 excision of varicose vein completed Aria Moe [facility] 07/31/2024 09:56:14 01/05/20 17 incision and drainage completed Aria Moe [facility] 07/31/2024 09:59:15 Hysterectomy completed Teresa Alfaro APRN, TOLL TEST WORKER [address] [place] [address], [address], [facility] 09/27/2024 10:45:16 cholecystectomy completed Teresa Alfaro APRN, TOLL TEST WORKER [address] [place] [address], [address], [facility] 09/27/2024 10:45:23 total replacement of right knee joint completed Teresa Alfaro APRN, TOLL TEST WORKER [address] [place] [address], [address], [facility] 09/27/2024 10:45:45 Imaging Results None recorded. Procedure Notes None recorded. Medical Equipment None Reported. Allergies Allergen ID Allergen Name Allergen Category Reaction Reaction Severity Criticality Documentation Date Start Date Code Code System Note Provider Name and Address Organization Details Recorded Time 8565428 Wellbutri n medicatio n other Not available Not available 11/09/20232014 97999 RxNorm React ion: Agita tion; Depre ssion ; Comme nt: React ion Date: 10 Oct 2012 ; Not Available [facility] 04:32:44 630328 upadaciti nib medicatio n Not available Not available Not available 11/07/20232020 18448 92 RxNorm React ion: Other : incre ased infec tions ; Not Available [facility] 4 22:20:23 297842 Lunesta medicatio n other Not available Not available 11/07/20232013 32470 4 RxNorm React ion: Other ; Comme nt: Annot ation s: ADELA (ATHE NA TRANS ITION ED), CAMILLE MIN 2013 8:40A M poor taste sensa tion; ; Not Available [facility] 4 06:43:29 822473 morphine sulfate medicatio n rash Not available Not available 11/07/20232007 82620 RxNorm React ion: Swell ing; Rash; Not Available [facility] 4 22:20:24 Medications Name Sig Start Date Stop Date Status Note LastModified by Organization Details LastModified Time losartan 50 mg tablet TAKE 1 TABLET BY MOUTH EVERY DAY active Not Available Not Available No t Available atorvasta tin 40 mg tablet TAKE 1 TABLET BY MOUTH EVERY DAY active Not Available Not Available No t Available fluticaso ne 250 mcg-salme terol 50 mcg/dose blistr powdr for inhalatio n INHALE 1 PUFF BY MOUTH TWICE DAILY active Not Available Not Available No t Available pilocarpi ne 5 mg tablet TAKE 1 TABLET BY MOUTH THREE TIMES DAILY 02/25 completed Adverse reaction - nausea Not Available Not Available Not Available Carafate 1 gram tablet Take 1 tablet twice a day by oral route as needed. 11/26 completed Not Available Not Available Not Available tizanidin e 4 mg tablet TAKE 1 TABLET BY MOUTH EVERY EVENING NEEDED active Not Available Not Available No t Available metoprolo l succinate ER 50 mg tablet,ex tended release 24 hr TAKE 1 TABLET BY MOUTH EVERY DAY active Not Available Not Available No t Available clarithro mycin 500 mg tablet TAKE 1 TABLET BY MOUTH TWICE DAILY FOR 14 DAYS 05/17 completed Not Available Not Available Not Available hydrocodo ne 5 mg-acetam inophen 325 mg tablet TAKE 1 TABLET BY MOUTH EVERY NIGHT 06/07 completed Not Available Not Available Not Available meloxicam 15 mg tablet TAKE 1 TABLET BY MOUTH EVERY DAY 06/07 completed disconti nued at 06/07/24 appt. Not Available Not Available Not Available ondansetr on HCl 4 mg tablet TAKE 1 TABLET BY MOUTH EVERY 4 HOURS NEEDED active Not Available Not Available No t Available prednison e 20 mg tablet 05/17 completed Not Available Not Available Not Available prednison e 5 mg tablet TAKE 4 TABLETS ONCE DAILY FOR 3 DAYS, THEN TAKE 3 TABLETS ONCE DAILY FOR 3 DAYS, THEN TAKE 2 TABLETS ONCE DAILY FOR 3 DAYS. OFF 12/05 completed Not Available Not Available Not Available sulfameth oxazole 800 mg-trimet hoprim 160 mg tablet TAKE 1 TABLET BY MOUTH THREE TIMES DAILY active Not Available Not Available No t Available hydrocodo ne 10 mg-acetam inophen 325 mg tablet TAKE 1 TO 2 TABLETS BY MOUTH EVERY 6 HOURS NEEDED FOR PAIN 12/12 completed Not Available Not Available Not Available peg-elect rolyte solution 420 gram oral solution TAKE 2 DAY BOWEL PREP DIRECTED 03/28 completed Not Available Not Available Not Available omeprazol e 40 mg capsule,d elayed release TAKE 1 CAPSULE BY MOUTH TWICE DAILY FOR 14 DAYS 05/17 completed Not Available Not Available Not Available tramadol 50 mg tablet TAKE 1 TABLET BY MOUTH EVERY 12 HOURS NEEDED active Not Available Not Available No t Available amitripty line 50 mg tablet TAKE 2 TABLETS BY MOUTH EVERY DAY AT BEDTIME active Not Available Not Available No t Available Macrobid 100 mg capsule Take 1 capsule every 12 hours by oral route for 5 days. 03/10 completed Not Available Not Available Not Available oxycodone -acetamin ophen 5 mg-325 mg tablet TAKE 1 TABLET BY MOUTH EVERY 6 HOURS NEEDED FOR RIB PAIN 02/25 completed Not Available Not Available Not Available famotidin e 20 mg tablet TAKE 1 TABLET BY MOUTH TWICE DAILY active Not Available Not Available No t Available amlodipin e 10 mg tablet TAKE 1 TABLET BY MOUTH EVERY DAY 03/20 completed Not Available Not Available Not Available cephalexi n 500 mg capsule TAKE 1 CAPSULE BY MOUTH FOUR TIMES DAILY 05/17 completed Not Available Not Available Not Available pantopraz ole 40 mg tablet,de layed release TAKE 1 TABLET BY MOUTH EVERY DAY active Not Available Not Available No t Available oseltamiv ir 75 mg capsule TAKE 1 CAPSULE BY MOUTH TWICE DAILY FOR 5 DAYS 05/17 completed Not Available Not Available Not Available levothyro xine 125 mcg tablet TAKE 1 TABLET BY MOUTH DAILY 05/17 completed Not Available Not Available Not Available cevimelin e 30 mg capsule Take 1 capsule by mouth twice daily 2024 active Not Available Not Available Not Avai lable levothyro xine 150 mcg tablet TAKE 1 TABLET BY MOUTH EVERY DAY 30 MINUTES BEFORE FOOD OR DRINK. active Not Available Not Available No t Available docusate sodium 100 mg capsule TAKE 1 CAPSULE BY MOUTH TWICE DAILY 12/05 completed Not Available Not Available Not Available gabapenti n 300 mg capsule TAKE 2 CAPSULES BY MOUTH THREE TIMES DAILY active Not Available Not Available No t Available magnesium citrate oral solution 300mL by mouth ONCE in the morning 2024 active Not Available Not Available Not Avai lable diclofena c sodium 75 mg tablet,de layed release TAKE 1 TABLET BY MOUTH TWICE DAILY FOR PAIN active Not Available Not Available No t Available monteluka st 10 mg tablet TAKE 1 TABLET BY MOUTH EVERY DAY active Not Available Not Available No t Available mupirocin 2 % topical ointment APPLY A SMALL AMOUNT TO THE NARES TWICE DAILY FOR 7 DAYS active Not Available Not Available No t Available zolpidem 5 mg tablet TAKE 1 TABLET BY MOUTH AT BEDTIME NEEDED FOR SLEEP active Not Available Not Available No t Available furosemid e 20 mg tablet TAKE 1 TABLET BY MOUTH EVERY DAY active Not Available Not Available No t Available metoprolo l succinate ER 25 mg tablet,ex tended release 24 hr TAKE 1 AND 1/2 TABLETS BY MOUTH EVERY DAY active Not Available Not Available No t Available cefuroxim e axetil 500 mg tablet Take 1 tablet twice a day by oral route for 7 days. 2024 active Not Available Not Available Not Avai lable methylpre dnisolone 4 mg tablets in a dose pack FOLLOW PACKAGE DIRECTIO NS 05/17 completed Not Available Not Available Not Available albuterol sulfate HFA 90 mcg/actua tion aerosol inhaler INHALE 2 PUFFS BY MOUTH EVERY 4 HOURS NEEDED active Not Available Not Available No t Available fluticaso ne propionat e 50 mcg/actua tion nasal spray,norma pension active Not Available Not Available Not Available Hibiclens 4 % topical liquid USE DAILY WASH IN THE SHOWER FOR 7 DAYS active Not Available Not Available No t Available amoxicill in 875 mg-potass ium clavulana te 125 mg tablet 05/17 completed Not Available Not Available Not Available nabumeton e 500 mg tablet Take 1 tablet twice a day by oral route. 07/20 completed Cresencio miller at 07/20/24 appt. Not Available Not Available Not Available azithromy cathie 500 mg tablet TAKE 2 TABLETS BY MOUTH TWICE DAILY FOR 14 DAYS 05/17 completed Not Available Not Available Not Available ezetimibe 10 mg tablet TAKE 1 TABLET BY MOUTH EVERY DAY active Not Available Not Available No t Available duloxetin e 30 mg capsule,d elayed release TAKE 1 CAPSULE BY MOUTH DAILY 05/17 completed Not Available Not Available Not Available duloxetin e 60 mg capsule,d elayed release TAKE 1 CAPSULE BY MOUTH EVERY DAY active Not Available Not Available No t Available aripipraz ole 2 mg tablet TAKE 2 TABLET BY MOUTH DAILY active Not Available Not Available No t Available diclofena c 1 % topical gel APPLY 2 TO 4 GRAMS TOPICALL Y TO THE AFFECTED AREA FOUR TIMES DAILY 06/07 completed Not Available Not Available Not Available Ozempic 0.25 mg or 0.5 mg (2 mg/1.5 mL) subcutane ous pen injector Inject 0.25 mg every week by subcutan eous route. 08/22 completed Not Available Not Available Not Available Wegovy 0.25 mg/0.5 mL subcutane ous pen injector Inject 0.25 mg every week by subcutan eous route. 08/22 completed Denied by insuranc e 08/03/24 Not Available Not Available Not Available Paxlovid 300 mg (150 mg x 2)-100 mg tablets in a dose pack TAKE 2 NIRMATRE LVIR TABLETS AND 1 RITONAVI R TABLET TOGETHER BY MOUTH TWICE DAILY FOR 5 DAYS 05/17 completed Not Available Not Available Not Available Vitals Date Recorded Body height Body mass index (BMI) Body weight Body temperature Heart rate Oxygen saturation Oxygen saturation in Arterial blood by Pulse oximetry Systolic blood pressure Diastolic blood pressure Provider Name and Address Organization Details Last Updated DateTime 5 168.91 cm 34.9 kg/m2 58709.8 3 g 97.8 [degF] 56 /min 97 % 97 % 130 mm[Hg] 82 mm[Hg] Vivienne Nguyễn [facility] 5 10:31:05 Social History None recorded. Functional Status None recorded. Mental Status None recorded. Family History Nothing Reported. Medical History No medical history recorded. Gynecological HistoryNo gynecological history recorded. Obstetrics History GPAL:G 0 P 0 0 0 0 Immunizations Vaccine Type Date Status Note Provider Nam e and Address Organization Details Recorded Time COVID-19, mRNA, LNP-S, PF, 30 mcg/0.3 mL dose 07/22/[address] [facility] 05/17/2024 16:59:31 COVID-19, mRNA, LNP-S, PF, 30 mcg/0.3 mL dose 08/09/[address] [facility] 05/17/2024 16:59:31 Past Encounters Encounter ID Performer Location Encounter Start Date Encounter Closed Date Diagnosis/Indication Diagnosis SNOMED-CT Code Diagnosis ICD10 Code Diagnosis Note [id number] Crystal Barker APRN [facility]) [address] [place] [address] 03/11/2025 12:20:42 03/11/2025 12:56:23 Rib pain 099066255 R07.81 From near fall, hitting her lower right anterior chest on a railing. Pain with inspiratio n. Xray of the chest and right ribs today showed non-displa [place] 11th rib fracture at the right. Pt was offered pain medication while in the office today. We discussed tramadol, but she declined at this time. She will plan Aleve and Tylenol and I suggested lidocaine patches, which she states she has at home. She was called with the xray results and will plan to f/u with any worsening or with any uncontroll ed pain.Jimmie nt reports agreement and understand ing with this plan. Closed fra cture of single right rib [id number] S22.31XA [id number] Sweetie Rutledge MD [facility] ([place]) [address] [place] [address] 03/13/2025 09:47:46 03/13/2025 16:58:35 Asthma 971648123 J45.909 Am uncertain about the diagnosis of asthma in this patient. Unable to do methacholi ne challenge on her due to her rib fracture. Will go ahead and give her empiric bronchodil ator for the next 2 months and see how she does symptomati truman. Start Wixela 250/50 twice daily and she will rinse her mouth out with that. I will see her back in the office after she has been on that for a couple months and will be able to do a spirogram at that visit. If she does not respond well to the Wixela inhaler, we will plan on stopping it at the next visit and she will definitely need to have that more formal methacholi ne challenge if that is the case Chronic cough 02746039 R 05.3 There is definitely an upper airway cough syndrome going on with postnasal drip and gastroesop hageal reflux contributi ng to her chronic throat clearing cough. She will stay on her nasal steroid and PPI accordingl y. [id number] Crystal Barker APRN [facility] ([place]) [address] [place] [address] 03/20/2025 09:32:00 03/20/2025 10:16:06 Essential hypertension 91754591 I10 labile BP's in mid-adulth ood. Cardiology started amlodipine (in setting of workup exertional chest pain), and increased dose along w/ added metoprolol 02/08/22. Also on Lasix. Replace Amlodipine with Losartan in an effort to reduce constipati ng medication s. We'll check in to see what her blood pressure looks like at her colonoscop y/EGD next week and then have her return to the office in a couple of weeks for a BMP to ensure stability of her kidney function. Chronic constipation [id number] K59.09 Continued constipati on, evidenced on KUB from 03/18 despite Mag Citrate cleanout as well as daily Miralax and Colace. She will continue current regimen of Miralax and Colace daily. She is concerned with being completely cleaned out for her colonoscop y next week so she will continue the Dulcolax for a few more days as well. She has the bowel prep at home ordered by GI and understand s those tod velasquez. [id number] Daily Chavez MD [facility] [address] [place] [address] 03/28/2025 13:46:30 04/04/2025 09:47:36 [id number] Og Capellan MD [facility] [place]) [address] [place] [address], [address] [place] [address] 03/28/2025 13:46:32 04/02/2025 11:06:49 [id number] Topher Chapman MD [facility] ([place]) [address] [place] [address] 04/04/2025 12:25:59 04/04/2025 13:05:00 [id number] Sweetie Rutledge MD [address] [place] [address] 04/05/2025 12:39:34 04/05/2025 17:32:56 Asthma [id number] J45.909 Am uncertain about the diagnosis of asthma in this patient. Unable to do methacholi ne challenge on her due to her rib fracture. Will go ahead and give her empiric bronchodil ator for the next 2 months and see how she does symptomati truman. Start Wixela 250/50 twice daily and she will rinse her mouth out with that. I will see her back in the office after she has been on that for a couple months and will be able to do a spirogram at that visit. If she does not respond well to the Wixela inhaler, we will plan on stopping it at the next visit and she will definitely need to have that more formal methacholi ne challenge if that is the case [id number] Crystal Barker APRN [facility] ([place]) [address] [place] [address] 04/10/2025 10:14:57 04/10/2025 11:03:22 Pain of left shoulder joint [id number] M25.[address] for shoulder revision Dr. Goldstein 04/30/25. Preprocedu ral examination done [id number] 74719 Z01.818 No contraindi cations for planned procedure pending any labs/tests required by surgeon. Labs obtained today. EKG ordered to be performed at the hospital and patient understand s that she must return for the MRSA nasal swab as it is too soon to perform this today. Health Concerns Section Related Observation LastModified by Organization Detai ls LastModified Time None Recorded Concern Status LastModified by Organization Details LastModified Time None Recorded Payers Encounter Date Sequence Insurance Name Policy Number Policy Hagen Covered Member ID Hagen Member ID Guarantor Name 04/10/2025 1 [facility] (MEDICARE REPLACEMENT/A DVANTAGE - HMO) [id number] [facility] [id number] [facility] Notes Date Note Type Note Provider Name and Address Organization Details Recorded Time 04/10/2025 text/html Pre-OpReported bypatient.Risk Factorsno cognitive impairment; no functional impairment; no malnutrition; no frailty; able to climb a flight of stairs (exercise capacity>4 METS); no obstructive sleep apnea; non-smoker; no alcohol misuse; no illicit drug use;obese; Occasional alcohol use. NO blood thinners, bleeding tendencies or easy bruising Anesthesia hx:no hx of anesthesia complications; no allergy to anesthetic agents; no family history of anesthesia complications Functional Ability:able to walk up stairs; able to perform heavy work around the house; no difficulty walking up hills Revision of her anatomic shoulder arthroplasty to a reverse shoulder arthroplasty scheduled for 04/30/25 Dr. Goldstein at [facility]-Eating/drinking without difficulty-No recent illnesses-No chest pain/SOB-Not on a blood thinner Crystal Barker, PROPERTIES SUPERVISOR [address] [place] [address], [phone], [facility] 04/10/2025 17:50:51 OBGyn Episode No OBEpisode recorded.
--- OUTSIDE RECORDS SUMMARY | 2025-04-11 01:47 | XMS_ITS ---
Author Organization [facility] Address [address] [place] [address] Care Team Providers Care Driver Recruiter Name Role Phone None, PCP Primary Care Provider Elijah Batres Unavailable [phone] Allergies Allergen (clinical drug ingredient) Drug/Non Drug Allergy documented on EMR Reaction Allergy Type Onset Date Status morphine morphine swelling Drug Allergy Active REASON FOR VISIT HOSPITAL LABORATORY TECHNICIAN Consult Medications Medication SIG (Take, Route, Frequency, Duration) Notes Start Date End Date Status albuterol 90 mcg/inh aerosol 2 puff(s) inhaled every 6 hours Unknown amitriptyline 50 mg tablet 2 tab(s) orally once a day (at bedtime) Unknown atorvastatin 40 mg tablet 1 tab(s) orally once a day Unknown ARIPiprazole 2 mg tablet 1 tab(s) orally once a day Unknown cevimeline 30 mg capsule 1 cap(s) orally 3 times a day Unknown gabapentin 300 mg capsule 1 cap(s) orally 3 times a day Unknown furosemide 20 mg tablet 1 tab(s) orally once a day Unknown diclofenac topical 1% gel as directed applied topically 4 times a day Unknown famotidine 20 mg tablet 1 tab(s) orally 2 times a day Unknown DULoxetine 60 mg delayed release capsule 1 cap(s) orally once a day Unknown levothyroxine 125 mcg (0.125 mg) tablet 1 tab(s) orally once a day Unknown HYDROcodone 10 mg capsule, extended release 1 cap(s) orally every 12 hours -acetaminophen 5-325mg Unknown meloxicam 15 mg tablet 1 tab(s) orally o nce a day Unknown montelukast 10 mg tablet 1 tab(s) orally once a day Unknown metoprolol 25 mg capsule, extended release 1 cap(s) orally once a day Unknown sulfADIAZINE 500 mg tablet 1 tab(s) orally every 6 hours Unknown pantoprazole 40 mg delayed release tablet 1 tab(s) orally twice a day Unknown zolpidem 5 mg tablet 1 tab(s) orally onc e a day (at bedtime) Unknown tiZANidine 4 mg tablet 1 tab(s) orally o nce a day Unknown Encounters Encounter Location Date Provider Diagnosis [facility] [address] [facility] [address] [place] [address] 05/03/2024 Elijah Hilario Plan Of Treatment No Information History and Physical Notes * Examination Category Sub-Category Detail Notes Category Not es General examination LABORATORY DATA: Dated:02/12, WBC:10.3, HGB:13.6, HCT:42.9, PLT:382, BUN:13, Creatinine:0.87, ALB:4.0, Total Bili:0.3, ALP:117, AST:20, ALT:22 Progress Notes * Sofia AUSTIN LDOB: (59 yo F)Acc No.[id number]:05/03/2024 Consultation Report Patient: Sofia Gauthier Provider: Gera Hilario MD :1965 A ge:58 Y S ex:Female Date:05/03/2024 Address:[address] [place], [place] [id number] Pcp:PCP None Subjective: * Chief Complaints: * N P Consult * HPI: e ncounter: Sofia Austin is a 58 y/o F She was seen by cardiology earlier this year for chest pain with report of prior unreveling cardiac catheterization. Cardiac CT February2024 shows mild distal esophageal thickening with a patulous esophagus and small hiatal hernia. RUQ US was unremarkable (post-cholecystectomy She was seen in the ER early february2024 for malaise and chest pain and cough with mild leukocytosis and otherwise unremarkable labwork. * Hospitalization/Major Diagno stic Procedure: Shortness of Breath, chest pain, dizziness, cough, sore throat 03/02 * Medications: U nknownzolpidem 5 mg tablet 1 tab(s) orally once a day (at bedtime) tiZANidine 4 mg tablet 1 tab(s) orally once a day sulfADIAZINE 500 mg tablet 1 tab(s) orally every 6 hours pantoprazole 40 mg delayed release tablet 1 tab(s) orally twice a day montelukast 10 mg tablet 1 tab(s) orally once a day metoprolol 25 mg capsule, extended release 1 cap(s) orally once a day meloxicam 15 mg tablet 1 tab(s) orally once a day levothyroxine 125 mcg (0.125 mg) tablet 1 tab(s) orally once a day HYDROcodone 10 mg capsule, extended release 1 cap(s) orally every 12 hours gabapentin 300 mg capsule 1 cap(s) orally 3 times a day furosemide 20 mg tablet 1 tab(s) orally once a day famotidine 20 mg tablet 1 tab(s) orally 2 times a day DULoxetine 60 mg delayed release capsule 1 cap(s) orally once a day diclofenac topical 1% gel as directed applied topically 4 times a day cevimeline 30 mg capsule 1 cap(s) orally 3 times a day atorvastatin 40 mg tablet 1 tab(s) orally once a day ARIPiprazole 2 mg tablet 1 tab(s) orally once a day amitriptyline 50 mg tablet 2 tab(s) orally once a day (at bedtime) albuterol 90 mcg/inh aerosol 2 puff(s) inhaled every 6 hours Unknown zolpidem 5 mg tablet 1 tab(s) orally once a day (at bedtime) Unknown tiZANidine 4 mg tablet 1 tab(s) orally once a day Unknown sulfADIAZINE 500 mg tablet 1 tab(s) orally every 6 hours Unknown pantoprazole 40 mg delayed release tablet 1 tab(s) orally twice a day Unknown montelukast 10 mg tablet 1 tab(s) orally once a day Unknown metoprolol 25 mg capsule, extended release 1 cap(s) orally once a day Unknown meloxicam 15 mg tablet 1 tab(s) orally once a day Unknown levothyroxine 125 mcg (0.125 mg) tablet 1 tab(s) orally once a day Unknown HYDROcodone 10 mg capsule, extended release 1 cap(s) orally every 12 hours Unknown gabapentin 300 mg capsule 1 cap(s) orally 3 times a day Unknown furosemide 20 mg tablet 1 tab(s) orally once a day Unknown famotidine 20 mg tablet 1 tab(s) orally 2 times a day Unknown DULoxetine 60 mg delayed release capsule 1 cap(s) orally once a day Unknown diclofenac topical 1% gel as directed applied topically 4 times a day Unknown cevimeline 30 mg capsule 1 cap(s) orally 3 times a day Unknown atorvastatin 40 mg tablet 1 tab(s) orally once a day Unknown ARIPiprazole 2 mg tablet 1 tab(s) orally once a day Unknown amitriptyline 50 mg tablet 2 tab(s) orally once a day (at bedtime) Unknown albuterol 90 mcg/inh aerosol 2 puff(s) inhaled every 6 hours * Allergies: m orphine: swelling Objective: * Examination: G eneral examination: LABORATORY DATA: D ated:02/13/24, WBC:10.3, HGB:13.6, HCT:42.9, PLT:382, BUN:13, Creatinine:0.87, ALB:4.0, Total Bili:0.3, ALP:117, AST:20, ALT:22. ? * Electronic signature of Luis Hilario MD on 04/11/2025 at 02:47 AM EDT Sign off status: Pending * Provider: Gera Hilario MD Date: 05/03/2024 Generated for Lavell burks/Oriana/Johnnyitting on: 04/11/2025 02:47 AM EDT
--- OUTSIDE RECORDS SUMMARY | 2025-04-11 01:47 | XMS_ITS | Clinical Summary ---
Author Organization [facility] Address [address] [place] [address] Care Team Providers Care Rail Detector Car Operator Name Role Phone Topher Cruz MD Primary Care Provider [phone] Tu Garrison MD Unavailable [phone] Allergies Active Allergy Reactions Criticality Noted Date [...] (10/16/2019): Added automatically from request for surgery [id number] Trochanteric bursitis of left hip 10/16/2019 Overview (10/16/2019): Added automatically from request for surgery [id number] Aftercare following right knee joint replacement surgery 04/16/2019 Primary osteoarthritis of right knee 03/21/2019 Overview (03/21/2019): Added automatically from request for surgery [id number] Systemic lupus erythematosus 02/23/2014 Overview (01/14/2017): SLE Surgical History Surgery Date Site/Laterality Comments CHOLECYSTECTOMY 10/10/1997 - 10/09/1998 HYSTERECTOMY 10/10/2007 - 10/09/2008 BLADDER SURGERY 10/10/2008 - 10/09/2009 FL FLUORO GUIDED INJECTION HIP LEFT 08/15/2019 Left JOINT REPLACEMENT Knee and Hip Replacement () BLADDER SURGERY 10/10/2009 - 10/09/2010 bladder stimulator implanted RECTAL PROLAPSE REPAIR 10/10/2008 - 10/09/2009 Medical History Medical History Date Comments Systemic lupus erythematosus (HCC) Systemic lupus erythematosus Hx Other Medical shrinking lung synd Rheumatoid arthritis (HCC) Asthma Thyroid disease GERD (gastroesophageal reflux disease) Osteoporosis Osteoarthritis Hypothyroidism Bladder spasms Anxiety Depression Gastric reflux Mitral valve prolapse Sinusitis Sjogren's syndrome Hypertension Family History Medical History Relation Name Comments Cancer Brother Diabetes Brother Heart disease Brother Hypertension Brother Heart disease Father Hypertension Father Cancer Mother Diabetes Mother Heart disease Mother Hypertension Mother Hypertension; Stroke Mother Other Other Family history of Diabetes -Diabetes Type II; Cancer Sister Diabetes Sister Hypertension Sister Relation Name Status Comments Brother Father Mother Other Sister Social History Tobacco Use Types Packs/Day Years [...] on file Legal Sex Female 12:52 PM MINERAL RESOURCES INSPECTOR Gender Identity Not on file Sexual Orientation Not on file Obstetrics History Last Filed Vital Signs Vital Sign Reading Time Taken Comments Blood Pressure 133/83 10/05/2022 3:19 PM MINERAL RESOURCES INSPECTOR Pulse 101 10/05/2022 3:19 PM MINERAL RESOURCES INSPECTOR Temperature 36.4 C (97.5 F) 10/05/2022 2:44 PM MINERAL RESOURCES INSPECTOR Respiratory Rate 20 10/05/2022 3:19 PM MINERAL RESOURCES INSPECTOR Oxygen Saturation 95% 10/05/2022 3:19 PM MINERAL RESOURCES INSPECTOR Inhaled Oxygen Concentration - - Weight 93 kg (205 lb) 10/05/2022 2:44 PM MINERAL RESOURCES INSPECTOR Height 167.6 cm (5' 6) 10/05/2022 2:44 PM MINERAL RESOURCES INSPECTOR Body Mass Index 33.09 10/05/2022 2:44 PM MINERAL RESOURCES INSPECTOR Plan of Treatment Health Maintenance Due Date Last Done Comments Breast Cancer Screening-Mammogram 1965 Colon Cancer Screening-Colonoscopy 1965 Hepatitis C Screening 1965 DTaP/Tdap/Td Vaccine (1 - Tdap) 1976 Hepatitis B Screening 1983 Regular Well Visit/Exam 18-64 1983 Zoster Vaccine (1 of 2) 2015 Depression Screening 10/16/2020 10/16/2019, 03/21/2019 Covid-19 Vaccine (3 - 2023-2 5 season) 2024 08/09/2021, 07/22/2021 Influenza Vaccine (Season Ended) 2025 Pneumococcal vaccine <65 Aged Out No longer eligible based on patient's age to complete this topic Goals Goal Patient Goal Type Associated Problems Recent Progress Patient-Stated? Author CCM Chronic Pain Care Plan Chronic Care Management Worsening(1 11/15/2021 12:27 PM MINERAL RESOURCES INSPECTOR) No Lynsey Jalloh RN Note: Problem: Chronic Pain Goals: 1. Minimize further functional decline 2. Maximize quality of life 3. Control pain Strategies: - Activity/exercise program recommendation - Conservative stepwise pain medicine strategy with multi-disciplinary approach - Recommend healthy lifestyle strategies and compensatory methods as needed Medical Devices Implanted Type Area Piece Goods Packer Device Identifier Shelf Expiration Date Model / Serial / Lot Other - See Comments-10/10/19 14 Implanted:10/10 (Quantity not on file) Other - see comments N/A: Bladder Description:PT HAS INTERSTIM BLADDER STIMULATOR IMPLANTED IN 2013 DR SPENCER, [facility] [employer] [id number] Attune Cementless Rotate Platform Knee 6 Baseplate Tibial - [id number] Implanted:Qty: 1 on 04/04/2019 by Tu Garrison MD at [facility] Right: Knee [employer] 11/09/2027 [id number] / / [id number] [employer] [id number] Attune Cruciate Retain Cementless Knee Right 5 Component Femoral - [id number] Implanted:Qty: 1 on 04/04/2019 by Tu Garrison MD at [facility] Right: Knee [employer] 02/07/2028 [id number] / / [id number] [employer] [id number] Attune 6mm Cruciate Retaining Rotate Platform Knee 5 Insert - [id number] Implanted:Qty: 1 on 04/04/2019 by Tu Garrison MD at [facility] Right: Knee [employer] 01/07/2023 [id number] / / [id number] [employer] [id number] Rector 52mm 36mm Hip Neutral Liner Acetabular Altrx Sterile Latex Free - [id number] Implanted:Qty: 1 on 10/29/2019 by Tu Garrison MD at [facility] Left: Hip [employer] 09/08/2024 [id number] / / [id number] [employer] [id number] Rector 52mm Sector Hip Shell Acetabular Gription Sterile Latex Free - [id number] Implanted:Qty: 1 on 10/29/2019 by Tu Garrison MD at [facility] Left: Hip [employer] 09/08/2029 [id number] / / [id number] [employer] 1217-25-500 Rector 6.5mm 25mm Acetabular Cancellous Screw Bone Sterile - [id number] Implanted:Qty: 1 on 10/29/2019 by Tu Garrison MD at [facility] Left: Hip [employer] 06/09/2029 1217-25-500 / / [id number] [employer] 1365-36-330 Articul/Kory 36mm Cementless Hip +8.5mm 12/14 Taper Head Femoral Latex Free - [id number] Implanted:Qty: 1 on 10/29/2019 by Tu Garrison MD at [facility] Left: Hip [employer] 04/08/2024 [id number] / / [id number] [employer] 1010-11-050 Actis 105mm Collar Hip 5 Standard Offset Stem Femoral - [id number] Implanted:Qty: 1 on 10/29/2019 by Tu Garrison MD at [facility] Left: Hip [employer] 05/09/2029 1010-11-050 / / [id number] Insurance [facility] Subscriber Plan / Payer (Ef fective 2020-Present) Name:Sofia Castaneda Relation to Subscriber:Self Name:Sofia Castaneda Payer ID:[id number] (NAIC) Type:AETNA MEDICARE Address: [address] [facility] [employer] Advance Directives For more information, please contact: [phone] * Full Code (Latest Code Status on File) Date Activated Date Inactivated Comments 10/29/2019 1:58 PM 10/30/2019 5:31 PM * Full Code Date Activated Date Inactivated Comments 04/04/2019 4:03 PM 04/05/2019 9:43 PM Care Teams Rail Detector Car Operator Relationship Specialty Start Date End Date Topher Cruz MD [address] [place] [address] PCP - General Family Medicine 02/20/19 Tu Garrison MD [address] [place] [address] Surgeon Orthopedic Surgery 10/30/19
--- OUTSIDE RECORDS SUMMARY | 2025-04-11 01:48 | XMS_ITS | Encounter Summary ---
Author Organization [facility] Address [address] [place] [address] Care Team Providers Care Operations Manager Station Name Role Phone Jose G Cruz MD Primary Care Provider Unavailab Manav Boles MD Unavailable Unavailable Topher Cruz MD Primary Care Provider [phone] Encounter Details Date Type Department Care Team ([facility] Contact Info) Description 12/24/2017 Abstract [facility] CONVERSION [address] [place] [address] , Generic ConversionMD Social History Tobacco Use Types Packs/Day Years Used Date Smoking Tobacco: Never Comments Unknown Sex and Gender Information Value Date Recorded Sex Assigned at Female 10/30/2024 2:20 PM FIELD IRONWORKER Legal Sex Female 6:08 PM CDT Gender Identity Not on file Sexual Orientation Not on file documented as of this encounter Plan of Treatment Not on file documented as of this encounter Visit Diagnoses Not on filedocumented in this encounter Additional Health Concerns Infection Onset Date Last Indicated Resolved Time COVID-19 Rule Out 03/02/2022 03/02/2022 03/02/2022 7:33 PM CDT COVID-19 Rule Out 08/16/2023 08/16/2023 08/16/2023 1:29 AM FIELD IRONWORKER documented as of this encounter Care Teams Operations Manager Station Relationship Specialty Start Date End Date Jose G Cruz MD PCP - General FAMILY PRACTICE 04/10/19 03/01/22 Topher Cruz MD [address] [place] [address] PCP - General FAMILY PRACTICE 03/02/22 Manav Tripp MD Consulting Physician RHEUMATOLOGY 10/10/21 documented as of this encounter
--- OUTSIDE RECORDS SUMMARY | 2025-04-11 01:48 | XMS_ITS | Patient Health Record ---
Author Organization [facility] Address [address] [place] [address] Care Team Providers Care Director Of Quality Improvement Name Role Phone None, PCP Primary Care Provider Elijah Batres Unavailable [phone] Allergies Allergen (clinical drug ingredient) Drug/Non Drug Allergy documented on EMR Reaction Allergy Type Onset Date Status morphine morphine swelling Drug Allergy Active Reason For Referral No Information Medications Medication SIG (Take, Route, Frequency, Duration) Notes Start Date End Date Status gabapentin 300 mg capsule 1 cap(s) orally 3 times a day Unknown furosemide 20 mg tablet 1 tab(s) orally once a day Unknown levothyroxine 125 mcg (0.125 mg) tablet 1 tab(s) orally once a day Unknown albuterol 90 mcg/inh aerosol 2 puff(s) inhaled every 6 hours Unknown HYDROcodone 10 mg capsule, extended release 1 cap(s) orally every 12 hours -acetaminophen 5-325mg Unknown amitriptyline 50 mg tablet 2 tab(s) orally once a day (at bedtime) Unknown meloxicam 15 mg tablet 1 tab(s) orally o nce a day Unknown montelukast 10 mg tablet 1 tab(s) orally once a day Unknown atorvastatin 40 mg tablet 1 tab(s) orally once a day Unknown metoprolol 25 mg capsule, extended release 1 cap(s) orally once a day Unknown ARIPiprazole 2 mg tablet 1 tab(s) orally once a day Unknown sulfADIAZINE 500 mg tablet 1 tab(s) orally every 6 hours Unknown diclofenac topical 1% gel as directed applied topically 4 times a day Unknown pantoprazole 40 mg delayed release tablet 1 tab(s) orally twice a day Unknown cevimeline 30 mg capsule 1 cap(s) orally 3 times a day Unknown zolpidem 5 mg tablet 1 tab(s) orally onc e a day (at bedtime) Unknown famotidine 20 mg tablet 1 tab(s) orally 2 times a day Unknown tiZANidine 4 mg tablet 1 tab(s) orally o nce a day Unknown DULoxetine 60 mg delayed release capsule 1 cap(s) orally once a day Unknown Plan Of Treatment No Information Medical (General) History Hospitalization History Reason Date(Month/Year) Shortness of Breath, chest pain, dizzine ss, cough, sore throat 03/02
--- OUTSIDE RECORDS SUMMARY | 2025-04-11 01:48 | XMS_ITS | Encounter Summary ---
Author Organization [facility] Address [address] [place] [address] Care Team Providers Care Motel Manager Name Role Phone Jose G Cruz MD Primary Care Provider Unavailab Manav Boles MD Unavailable Unavailable Topher Cruz MD Primary Care Provider [phone] Encounter Details Date Type Department Care Team (Late st Contact Info) Description 08/18/2020 Hospital Follow-up Call [facility] [address] [place] [address] Thuy Menezes, RN Social History Tobacco Use Types Packs/Day Years Used Date Smoking Tobacco: Never Smokeless Tobacco: Never Alcohol Use Standard Drinks/Week Comments Yes 0 (1 standard drink = 0.6 oz pur e alcohol) rarely Comments Unknown Sex and Gender Information Value Date Recorded Sex Assigned at Female 10/30/2024 2:20 PM SAIL REPAIR PERSON Legal Sex Female 6:08 PM CDT Gender Identity Not on file Sexual Orientation Not on file COVID-19 Exposure Response Date Recorded In the last month, have you been in contact with someone who was confirmed or suspected to have Coronavirus / COVID-19? No / Unsure 08/12/2020 10:18 PM SAIL REPAIR PERSON documented as of this encounter Functional Status * RETIRED Are you deaf or do you have serious difficulty hearing Answer Date of Assessment Author Status No 08/15/2020 10:30 AM SAIL REPAIR PERSON Acti ve * RETIRED Are you blind or do you have serious difficulty seeing, even when wearing glasses? Answer Date of Assessment Author Status No 08/15/2020 10:30 AM SAIL REPAIR PERSON Acti ve * Do you have serious difficulty walking or climbing stairs? Answer Date of Assessment Author Status No 08/15/2020 10:30 AM Hailey Astudillo RN Active * Do you have difficulty dressing or bathing? Answer Date of Assessment Author Status No 08/15/2020 10:30 AM Hailey Astudillo RN Active * Because of a physical, mental, or emotional condition, do you have difficulty doing errands alone such as visiting a doctor's office or shopping? Answer Date of Assessment Author Status No 08/15/2020 10:30 AM Hailey Astudillo RN Active documented as of this encounter Mental Status * Because of a physical, mental, or emotional condition, do you have serious difficulty concentrating, remembering, or making decisions? Answer Entry Date Author Status No 08/15/2020 10:30 AM Hailey Astudillo RN Active documented in this encounter Plan of Treatment Not on file documented as of this encounter Visit Diagnoses Not on filedocumented in this encounter Additional Health Concerns Infection Onset Date Last Indicated Resolved Time COVID-19 Rule Out 03/02/2022 03/02/2022 03/02/2022 7:33 PM CDT COVID-19 Rule Out 08/16/2023 08/16/2023 08/16/2023 1:29 AM SAIL REPAIR PERSON documented as of this encounter Care Teams Motel Manager Relationship Specialty Start Date End Date Jose G Cruz MD PCP - General FAMILY PRACTICE 04/10/19 03/01/22 Topher Cruz MD [address] [place] [address] PCP - General FAMILY PRACTICE 03/02/22 Manav Tripp MD Consulting Physician RHEUMATOLOGY 10/10/21 documented as of this encounter
--- NOTE | 2025-04-11 07:14 | WPDHPUPDATE1 ---
History and Physical Update Update Date/Time: 04/11/25 07:14 History and Physical has been reviewed, including an updated exam of the patient. There are NO changes in the patient's condition. Risks, benefits, and alternatives have been discussed and questions answered. Patient agrees to proceed with procedure.
[2025-04-11 08:27] VITALS: BP 125/81; PULSE 65; RESP 20; TEMP 36.4; O2SAT 100
--- NOTE | 2025-04-11 09:58 | WPDANESEPPF ---
Anes - Initial Pre Proc Eval Procedure: Operation Date: 04/11/25 10:15 Proposed Procedures p Cystoscopy, Botox Injection, Bulking Agent Injection - Taras Narayanan MD Date/Time: 04/11/25 09:58 Surgeon: Taras Narayanan MD Pre Op Diagnosis: hx of UTI, stress incont Patient Data Age: 59 Gender: F Height: 1.68 m Weight: 98.3 kg Last Vital Signs Temp 36.4 C L 04/11/25 08:27 Pulse 65 04/11/25 08:27 Resp 20 04/11/25 08:27 BP 125/81 04/11/25 08:27 Pulse Ox 100 04/11/25 08:27 O2 Del Method Room Air 04/11/25 08:27 Allergies Allergy/AdvReac Type Severity Reaction Status Date / Time morphine Allergy Rash Verified 04/11/25 09:01 Home Medications ?Medication ?Instructions ?Recorded ?Confirmed ?Type amitriptyline 50 mg tablet 100 mg PO HS 11/16/21 04/11/25 History ezetimibe 10 mg tablet 10 mg PO DAILY 11/16/21 04/11/25 History gabapentin 300 mg capsule 300 mg PO BID 11/16/21 04/11/25 History tizanidine 4 mg tablet 4 mg PO DAILY 11/16/21 04/11/25 History zolpidem 5 mg tablet 5 mg PO HS PRN Sleep 11/16/21 04/11/25 History levothyroxine 137 mcg capsule 137 mcg PO DAILY #60 caps 11/17/21 04/11/25 Rx aripiprazole 2 mg tablet 4 mg PO HS 04/09/25 04/11/25 History atorvastatin 40 mg tablet 40 mg PO DAILY 04/09/25 04/11/25 History duloxetine 60 mg capsule,delayed 60 mg PO HS 04/09/25 04/11/25 History release famotidine 20 mg tablet 20 mg PO Q12H 04/09/25 04/11/25 History losartan 50 mg tablet 50 mg PO DAILY 04/09/25 04/09/25 History metoprolol succinate 50 mg capsule 50 mg PO DAILY 04/09/25 04/11/25 History sprinkle, ext. release 24 hr ([place]sp[place] Sprinkle) montelukast 10 mg tablet 10 mg PO DAILY 04/09/25 04/11/25 History pantoprazole 40 mg tablet,delayed 40 mg PO Q12H 04/09/25 04/11/25 History release Patient hx anesthesia problems: none Family hx anesthesia problems: none Results Review: All pre-operative results and documents have been reviewed as part of the pre-operative evaluation. [facility] Past Medical History Medical History Hypothyroidism Insomnia Surgical History Surgical History Surgical history unknown Family History Family History Other Family history unknown Social History Social History Social History: Unable to obtain at this time given clinical condition as above. Smoking status: Never smoker Alcohol intake: current Substance use: never Substance use type: does not use Living arrangements: with family Spiritual care concerns: No Anes - Eval Final PreProcedure Day of Procedure 04/11/25 09:58 Patient weight: obese Heart: regular rate and rhythm Lungs: clear to auscultation Airway: Mallampati scale class II Neurological: alert and oriented Last oral intake: >/= 8 hours ASA classification: III Emergent: no Anesthetic plan: proceed Anesthesia type and monitoring: general GIVS and standard monitoring Results Review: All pre-operative results and documents have been reviewed as part of the pre-operative evaluation. Informed Consent: The patient's anesthetic plan and its attendant risks and benefits were discussed with the patient/family/POA. Questions were solicited and answers provided to the satisfaction of the patient/family/POA.
[2025-04-11] MEDS: BOTULINUM TOXIN TYPE A (*SPLP) 100 UNITS VIAL 200 UNITS XX (10:40)
[2025-04-11] MEDS: ceFAZolin 2 GM/D5W 50 ML 2 GM/50 ML BAG IVPB (10:41)
[2025-04-11] MEDS: LIDOCAINE 2% GEL UROJET 10 ML PKG MUCOUS MEM (10:42)
[2025-04-11 10:58] VITALS: BP 96/63; PULSE 68; RESP 14; O2SAT 100
[2025-04-11] MEDS: LACTATED RINGERS 1,000 ML 30 ML IV CONT (10:58)
--- NOTE | 2025-04-11 11:06 | W.PM.PROC2 ---
Procedure Note - Detailed Date of Procedure 04/11/25 Pre-op Diagnosis Urge incontinence Intrinsic sphincter deficiency Post-op Diagnosis Same Procedure Performed Cystoscopy injection of Botox 100 units Cystoscopy with suburethral injection of implant material Surgeon Taras Narayanan MD Anesthesia MAC and Local Indications She has mixed incontinence. She would like both treated 1 operative setting. We will do Botox 100 units as well as a bulking agent. She understands risks of bleeding, infection, need for repeat procedures, urinary retention. She agrees to proceed Description of Procedure She was correctly identified. Informed consent obtained. From the operating room. She was given monitored anesthesia care. She was placed in dorsal lithotomy position. She was prepped draped sterile fashion. Time-out performed. I applied a Uro jet to the urethra. I performed cystoscopy. Her bladder was examined was normal. No tumors or stones. No other abnormalities. Urethra open consistent with intrinsic sphincter deficiency I mixed 100 units Botox in 10 cc preservative-free saline. I injected it throughout the bladder the sub urothelial muscular layer. Additional cc was used to clear the needle I then chose a site the mid urethra 2 cm distal to bladder neck. I injected bulking agent circumferentially. I used 2 syringes total. There was excellent bulking effect on several pillows were performed. Her bladder was left partially full. She was awakened transferred to PACU in stable condition. Estimated Blood Loss 1 Packing No Pathology None sent Complications No immediate complications Condition Stable
[2025-04-11 11:25] VITALS: BP 130/70; PULSE 59; RESP 20
[2025-04-11 11:40] VITALS: BP 145/84; PULSE 60; RESP 20
== END 2025-04-11 11:46 | disposition home or self-care (01) ==
PROVIDERS: Visit Provider Urology
PROC: 3E0K8GC Introduction of Other Therapeutic Substance into Genitourinary Tract, Via Natural or Artificial Opening Endoscopic (ICD-10-PCS; CPT 52287; principal; 2025-04-11 10:15)
DX: N39.41 Urge incontinence (principal); N36.42 Intrinsic sphincter deficiency (ISD); E66.9 Obesity, unspecified; Z68.35 Body mass index [BMI] 35.0-35.9, adult
CPT/HCPCS: 52287; 51715; J0585; J0690; J2250; J2704; J3010; J7120; L8606